=== PATIENT | male | born 1980 | race African-American/Black ===

== ENCOUNTER 2017-11-25 14:13 | Emergency (ER) | payer MEDICAID ==
[~2017-11-25] VITALS: Ht 180.3 cm; Wt 90.7 kg
[~2017-11-25 14:13] MED LIST: CIPRO500 MG PO; COLACE100 MG ORAL; DICYCLOMINE HCL; FLAGYL500 MG ORAL; IBUPROFEN600 MG ORAL; LEVAQUIN500 MG ORAL; METRONIDAZOLE500 MG ORAL; NORCO 5-325 TA1 EACH ORAL; PEPCID20 MG ORAL; TRAMADOL HCL50 MG ORAL; ZOFRAN ODT4 MG ORAL; ZOFRAN8 MG ORAL
[2017-11-25] MEDS ORDERED: NKM (14:37)
[2017-11-25 14:54] VITALS: BP 128/70
[2017-11-25] MEDS ORDERED: Ketorolac 30mg Inj IV ONE (15:00)
[2017-11-25] MEDS ORDERED: Dicyclomine HCl 10mg/5ml oral soln ORAL ONE (15:00)
[2017-11-25] MEDS ORDERED: Mylanta II UD 30ml ORAL ONE (15:00)
[2017-11-25] MEDS ORDERED: Lidocaine 2% Visc 15ml soln ORAL ONE (15:00)
--- NOTE | 2017-11-25 15:00 | Emergency Room Report ---
History of Present Illness General Chief Complaint: Abdominal Pain Present Illness HPI 37-year-old male patient presents ER complaining of left lower quadrant abdominal pain for the past 4 days. Reports history of diverticulitis and states that the pain feels similar. Reports that the pain is moving from his left flank down to his left lower quadrant. contrary to triage report, patient denies dysuria, hematuria. Reports vomiting and diarrhea during this time. Reports been able to pass gas. States that he has been eating healthy with regards to his diverticulitis from a diet however he recently drink alcohol Friday which is when he began to experience symptoms. Denies traveling outside the country. Denies recent antibiotic use. Denies blood in vomit or stool. Denies other acute symptoms. Allergies: Coded Allergies: No Known Allergies (Unverified , 05/18/13) Patient History Past Medical History: see triage record Reviewed Nursing Documentation: PMH: Agreed; PSxH: Agreed Nursing Documentation-PMH Hx Hypertension: Yes Hx Asthma: Yes Hx Gastrointestinal Problems: Yes - diverticulitis Review of Systems All Other Systems: negative except mentioned in HPI Physical Exam Vital Signs Date Time Temp Pulse Resp B/P (MAP) Pulse Ox O2 Delivery O2 Flow Rate FiO2 11/25/17 14:32 98.3 76 18 128/70 96 Room Air 98.2 Sp02 EP Interpretation: reviewed, normal General Appearance: well appearing, no apparent distress, alert, GCS 15, non- toxic Head: normocephalic, atraumatic Eyes: bilateral eye normal inspection, bilateral eye PERRL ENT: hearing grossly normal, normal pharynx, no angioedema, normal voice, uvula midline, moist mucus membranes Neck: full range of motion Respiratory: lungs clear, normal breath sounds, no rhonchi, no respiratory distress, no accessory muscle use, no wheezing, speaking full sentences Cardiovascular #1: regular rate, rhythm, no edema Gastrointestinal: non tender, soft, no mass, non-distended, no guarding, no rebound, other - Negative Rovsing, negative Rodriguez, negative obturator, negative heel strike Genitourinary: no CVA tenderness Musculoskeletal: back normal, digits/nails normal, gait/station normal, normal range of motion, non-tender Neurologic: alert, oriented x3, responsive, motor strength/tone normal, sensory intact Psychiatric: mood/affect normal Skin: no rash Medical Decision Making PA Attestation Dr. Bass is my supervising Physician whom patient management has been discussed with. Diagnostic Impression: Primary Impression: Diverticulitis ER Course Pt. presents to the ED c/o abdominal pain, diarrhea, and vomiting. Ddx considered but are not limited to UTI, cholelithiasis, cholecystitis, pancreatitis, appendicitis, diverticulitis, gastritis, enteritis, viral syndrome. Negative Rovsing, no tenderness to palpation of McBurney's point, negative obturator, low suspicion for appendicitis. patient reports left lower quadrant tenderness, no tenderness to palpation on distraction, history of diverticulitis, will order CT to rule out underlying pathology. Begin abdominal pain workup. Provided patient with pain medication. Vital signs: are WNL, pt. is afebrile ORDERS: CBC, CMP, Lipase, UA, CT abdomen pelvis, Zofran, GI cocktail and pain medication. ER COURSE: CBC and CMP unremarkable, no elevation WBCs or LFTs Lipase within normal limits UA unremarkable, negative nitrates, patient asymptomatic, does not require antibiotic treatment at this time for possible UTI infection. Follow-up with primary care provider to discuss further treatment and referral. CT abdomen and pelvis diverticulitis. We'll provide patient with antibiotic treatment and Tylenol for pain symptoms. Follow up GI specialist. Also noted prominent prostate, follow-up with primary care provider to discuss referral as needed states specialist. Discuss results with the patient. Provided patient with copy of results. Instructed patient to followup with PCP and discuss results of report with patient, discuss need for further treatment and referral. Patient reports relief of pain symptoms with medication during stay in ER. Able to tolerate PO fluids. Resting comfortably in no acute distress, nontoxic appearing, afebrile. Okay for discharge to home. DISCHARGE: Rx provided for Cipro Rx provided for for metronidazole Rx provided for Tylenol At this time pt. is stable for d/c to home. Patient resting comfortably, in no acute distress, nontoxic appearing, talking without difficulty. Rx provided to patient. Patient to take medications as instructed Will provide with patient care instructions and any necessary prescriptions. Care plan and follow-up instructions provided. Patient instructed to follow-up with primary care provider in 3 - 5 days. Patient questions asked and answered. Patient reports understanding and agreement to treatment plan. ER precautions given. Patient instructed to return to ER immediately for any new or worsening of symptoms including but not limited to increasing SOB, persistent fever, worsening of pain symptoms, intractable vomiting, blood in stool, urine, and/or emesis. - Please note that this Emergency Department Report was dictated using [email or web address] production manager technology software, occasionally this can lead to erroneous entry secondary to interpretation by the dictation equipment. Labs Test 11/25/17 14:52 11/25/17 15:10 Urine Color Yellow Urine Appearance Clear Urine pH 8 (4.5-8.0) Urine Specific [place] 1.015 (1.005-1.035) Urine Protein Negative (NEGATIVE) Urine Glucose (UA) Negative (NEGATIVE) Urine Ketones 1+ (NEGATIVE) Urine Occult Blood Negative (NEGATIVE) Urine Nitrite Negative (NEGATIVE) Urine Bilirubin Negative (NEGATIVE) Urine Urobilinogen 4 MG/DL (0.0-1.0) Urine Leukocyte Esterase 1+ (NEGATIVE) Urine RBC 0-2 /HPF (0 - 0) Urine WBC 2-4 /HPF (0 - 0) Urine Squamous Epithelial Cells None /LPF (NONE/OCC) Urine Amorphous Sediment Few /LPF (NONE) Urine Bacteria Few /HPF (NONE) White Blood Count 4.2 K/UL (4.8-10.8) Red Blood Count 4.92 M/UL (4.70-6.10) Hemoglobin 14.4 G/DL (14.2-18.0) Hematocrit 42.9 % (42.0-52.0) Mean Corpuscular Volume 87 FL (80-99) Mean Corpuscular Hemoglobin 29.2 PG (27.0-31.0) Mean Corpuscular Hemoglobin Concent 33.5 G/DL (32.0-36.0) Red Cell Distribution Width 11.5 % (11.6-14.8) Platelet Count 193 K/UL (150-450) Mean Platelet Volume 7.7 FL (6.5-10.1) Neutrophils (%) (Auto) 55.8 % (45.0-75.0) Lymphocytes (%) (Auto) 35.7 % (20.0-45.0) Monocytes (%) (Auto) 6.5 % (1.0-10.0) Eosinophils (%) (Auto) 0.4 % (0.0-3.0) Basophils (%) (Auto) 1.6 % (0.0-2.0) Sodium Level 140 MMOL/L (136-145) Potassium Level 3.7 MMOL/L (3.5-5.1) Chloride Level 104 MMOL/L (98-107) Carbon Dioxide Level 25 MMOL/L (21-32) Anion Gap 11 mmol/L (5-15) Blood Urea Nitrogen 8 mg/dL (7-18) Creatinine 0.8 MG/DL (0.55-1.30) Estimat Glomerular Filtration Rate > 60 mL/min (>60) Glucose Level 88 MG/DL (74-106) Calcium Level 9.2 MG/DL (8.5-10.1) Total Bilirubin 0.4 MG/DL (0.2-1.0) Aspartate Amino Transf (AST/SGOT) 13 U/L (15-37) Alanine Aminotransferase (ALT/SGPT) 24 U/L (12-78) Alkaline Phosphatase 63 U/L (46-116) Total Protein 7.5 G/DL (6.4-8.2) Albumin 3.6 G/DL (3.4-5.0) Globulin 3.9 g/dL Albumin/Globulin Ratio 0.9 (1.0-2.7) Lipase 97 U/L (73-393) CT/MRI/US Diagnostic Results CT/MRI/US Diagnostic Results : Imaging Test Ordered: CT abdomen pelvis Impression Findings consistent with recurrent uncomplicated acute diverticulitis of the descending/sigmoid colon junction. Note that this is in a similar location to findings reported on 07/15/2013, although current findings are considerably more extensive Last Vital Signs Date Time Temp Pulse Resp B/P (MAP) Pulse Ox O2 Delivery O2 Flow Rate FiO2 11/25/17 14:54 98.2 79 18 128/70 96 Room Air 98.2 Status: improved Disposition: HOME, SELF-CARE Condition: Stable Scripts Acetaminophen* (TYLENOL EXTRA STRENGTH*) 500 Mg Tablet 500 MG ORAL Q8H PRN for Prn Headache/Temp > 101, #30 TAB 0 Refills Prov: Christiano Ramirez P.A. 11/25/17 Ciprofloxacin Hcl* (CIPROFLOXACIN HCL*) 500 Mg Tablet 500 MG ORAL EVERY 12 HOURS, #14 TAB 0 Refills Prov: Christiano Ramirez P.A. 11/25/17 Metronidazole* (FLAGYL*) 500 Mg Tablet 500 MG ORAL EVERY 8 HOURS, #7 TAB Prov: Christiano Ramirez 11/25/17 Patient Instructions: Diverticulitis, [id number], Diverticulosis Additional Instructions: Followup with primary care provider in 3 -5 days. Request referral to GI specialist. Take medications as directed. Patient questions asked and answered. ER precautions given, patient instructed to return to ER immediately for any new or worsening of symptoms including but not limited to intractable vomiting, worsening of pain symptoms, chest pain, shortness of breath, blood in stool or emesis. Christiano Ramirez Nov 25, 2017 15:00
[2017-11-25 15:03] LABS: APPEARANCE,URINE CLEAR; BILIRUBIN, URINE NEGATIVE (NEGATIVE); GLUCOSE, URINE (UA) NEGATIVE (NEGATIVE); KETONES,URINE 1+ (NEGATIVE); LEUKOCYTE ESTERASE ,URINE 1+ (NEGATIVE); NITRITE,URINE NEGATIVE (NEGATIVE); PH,URINE 8 (4.5-8.0); PROTEIN,URINE NEGATIVE (NEGATIVE); UROBILINOGEN,URINE 4 MG/DL (0.0-1.0)
[2017-11-25 15:15] LABS: COLOR,URINE YELLOW
[2017-11-25 15:41] LABS: BASOPHILS % (AUTO) 1.6 % (0.0-2.0); EOSINOPHILS % (AUTO) 0.4 % (0.0-3.0); HEMATOCRIT 42.9 % (42.0-52.0); HEMOGLOBIN 14.4 G/DL (14.2-18.0); LYMPHOCYTES % (AUTO) 35.7 % (20.0-45.0); MEAN CORPUSCULAR VOLUME 87 FL (80-99); MONOCYTES % (AUTO) 6.5 % (1.0-10.0); NEUTROPHILS % (AUTO) 55.8 % (45.0-75.0); PLATELET COUNT 193 K/UL (150-450); RED BLOOD COUNT 4.92 M/UL (4.70-6.10); RED CELL DISTRIBUTION WIDTH 11.5 % (11.6-14.8); WHITE BLOOD COUNT 4.2 K/UL (4.8-10.8)
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
[2017-11-25 15:57] LABS: ANION GAP 11 mmol/L (5-15); BLOOD UREA NITROGEN 8 mg/dL (7-18); CALCIUM 9.2 MG/DL (8.5-10.1); CARBON DIOXIDE 25 MMOL/L (21-32); CHLORIDE 104 MMOL/L (98-107); CREATININE 0.8 MG/DL (0.55-1.30); POTASSIUM 3.7 MMOL/L (3.5-5.1); SODIUM 140 MMOL/L (136-145)
[2017-11-25 16:01] LABS: ALANINE AMINOTRANSFERASE 24 U/L (12-78); ALBUMIN 3.6 G/DL (3.4-5.0); ALBUMIN/GLOBULIN RATIO 0.9 (1.0-2.7); ALKALINE PHOSPHATASE 63 U/L (46-116); ASPARTATE AMINO TRANSFERASE 13 U/L (15-37); BILIRUBIN,TOTAL 0.4 MG/DL (0.2-1.0)
[2017-11-25] MEDS ORDERED: TYLENOL EXTRA500 MG ORAL (17:00)
[2017-11-25] MEDS ORDERED: FLAGYL500 MG ORAL (17:00)
[2017-11-25] MEDS ORDERED: CIPROFLOXACIN500 M2 ORAL (17:00)
[2017-11-25 17:14] VITALS: BP 131/64
== END 2017-11-25 17:15 | disposition home or self-care (01) ==
LOC: EMR 14:54
DX: K57.32 Diverticulitis of large intestine without perforation or abscess without bleeding (principal); I10 Essential (primary) hypertension
CPT/HCPCS: 36415; 74176; 80053; 81003; 83690; 85025; 96361; 96374; 96375; 99284; J1885; J2405

== ENCOUNTER 2017-12-19 06:36 | Emergency (ER) | payer MEDICAID ==
[~2017-12-19] VITALS: Ht 180.3 cm; Wt 90.7 kg
[~2017-12-19 06:36] MED LIST changes: +CIPROFLOXACIN500 M2 ORAL; +NKM; +TYLENOL EXTRA500 MG ORAL
--- NOTE | 2017-12-19 07:06 | Emergency Room Report ---
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 and has had colonoscopy showing diverticulosis Patient reports following up with his primary physician and was given referral to another GI specialist more recently Allergies: Coded Allergies: No Known Allergies (Unverified , 05/18/13) Patient History Past Medical History: see triage record Pertinent Family History: none Reviewed Nursing Documentation: PMH: Agreed; PSxH: Agreed Nursing Documentation-PMH Past Medical History: No History, Except For Hx Hypertension: Yes Hx Asthma: Yes Hx Gastrointestinal Problems: Yes - Diverticulitis Review of Systems All Other Systems: negative except mentioned in HPI Physical Exam Vital Signs Date Time Temp Pulse Resp B/P (MAP) Pulse Ox O2 Delivery O2 Flow Rate FiO2 12/19/17 06:54 98.2 80 12 138/81 99 Room Air 98.2 Sp02 EP Interpretation: reviewed, normal General Appearance: well appearing, no apparent distress Head: normocephalic, atraumatic Eyes: bilateral eye PERRL, bilateral eye EOMI ENT: hearing grossly normal, normal pharynx, TMs + canals normal, uvula midline Neck: full range of motion, supple, no meningismus, no bony tend Respiratory: lungs clear, normal breath sounds, no rhonchi, no respiratory distress, no retraction, no accessory muscle use Cardiovascular #1: normal peripheral pulses, regular rate, rhythm, no edema, no gallop, no JVD, no murmur Gastrointestinal: normal bowel sounds, non tender, soft, no mass, no organomegaly, non-distended, no guarding, no hernia, no pulsatile mass, no rebound Genitourinary: no CVA tenderness Musculoskeletal: normal inspection Neurologic: oriented x3, responsive, streetcar operator III-XII nml as tested, motor strength/ tone normal, sensory intact Psychiatric: mood/affect normal Skin: normal color, no rash, warm/dry, palpation normal Lymphatic: normal inspection, no adenopathy Medical Decision Making Diagnostic Impression: Primary Impression: abdominal pain Additional Impression: Diverticulitis ER Course With the history exam and presentation, multiple differentials considered, including but not limited to appendicitis, gastritis, cholecystitis, diverticulitis Patient's clinical palpation is fairly benign Hemodynamically appropriate Afebrile Patient appears to have fairly chronic diverticulitis Given the acute discomfort however extensive blood work is initiated with IV medication intervention On reevaluation patient feel significantly improved Patient has had multiple CAT scan imaging's and in the best interest of the patient, given the lack of any acute abdominal-type findings on the exam this was not repeated Patient will have continued outpatient care and attempt Will follow closely with primary physician and return with any worsening symptoms Labs Test 12/19/17 07:00 White Blood Count 7.5 K/UL (4.8-10.8) Red Blood Count 4.86 M/UL (4.70-6.10) Hemoglobin 14.3 G/DL (14.2-18.0) Hematocrit 42.2 % (42.0-52.0) Mean Corpuscular Volume 87 FL (80-99) Mean Corpuscular Hemoglobin 29.4 PG (27.0-31.0) Mean Corpuscular Hemoglobin Concent 33.8 G/DL (32.0-36.0) Red Cell Distribution Width 11.3 % (11.6-14.8) Platelet Count 185 K/UL (150-450) Mean Platelet Volume 7.5 FL (6.5-10.1) Neutrophils (%) (Auto) 72.0 % (45.0-75.0) Lymphocytes (%) (Auto) 16.2 % (20.0-45.0) Monocytes (%) (Auto) 10.4 % (1.0-10.0) Eosinophils (%) (Auto) 0.5 % (0.0-3.0) Basophils (%) (Auto) 0.9 % (0.0-2.0) Sodium Level 138 MMOL/L (136-145) Potassium Level 3.8 MMOL/L (3.5-5.1) Chloride Level 104 MMOL/L (98-107) Carbon Dioxide Level 28 MMOL/L (21-32) Anion Gap 6 mmol/L (5-15) Blood Urea Nitrogen 9 mg/dL (7-18) Creatinine 0.9 MG/DL (0.55-1.30) Estimat Glomerular Filtration Rate > 60 mL/min (>60) Glucose Level 99 MG/DL (74-106) Calcium Level 8.7 MG/DL (8.5-10.1) Total Bilirubin 0.6 MG/DL (0.2-1.0) Aspartate Amino Transf (AST/SGOT) 13 U/L (15-37) Alanine Aminotransferase (ALT/SGPT) 26 U/L (12-78) Alkaline Phosphatase 62 U/L (46-116) Total Protein 7.6 G/DL (6.4-8.2) Albumin 3.6 G/DL (3.4-5.0) Globulin 4.0 g/dL Albumin/Globulin Ratio 0.9 (1.0-2.7) Lipase 78 U/L (73-393) Last Vital Signs Date Time Temp Pulse Resp B/P (MAP) Pulse Ox O2 Delivery O2 Flow Rate FiO2 12/19/17 06:54 98.2 80 12 138/81 99 Room Air 98.2 Status: improved Disposition: HOME, SELF-CARE Condition: Improved Scripts Acetaminophen With Codeine (T#3) (TYLENOL #3 TAB*) Y Tab 1 TAB ORAL Q8H PRN for For Pain, #10 TAB Prov: Laura Wells DO 12/19/17 Ondansetron (Zofran) 4 Mg Tablet 4 MG ORAL Q8HR PRN for Nausea & Vomiting, #10 TAB Prov: Laura Wells DO 12/19/17 Levofloxacin* (LEVAQUIN*) 500 Mg Tablet 500 MG ORAL DAILY for 7 Days, TAB Prov: Laura Wells DO 12/19/17 Additional Instructions: Patient is provided with the discharge instructions notified to follow up with primary doctor in the next 2-3 days otherwise return to the er with any worsening symptoms. Please note that this report is being documented using [employer] technology. This can lead to erroneous entry secondary to incorrect interpretation by the dictating instrument. Laura Wells DO Dec 19, 2017 07:06
[2017-12-19] MEDS ORDERED: DiphenhydrAMINE 50mg/ml Inj IVP ONE (07:15)
[2017-12-19] MEDS ORDERED: Metoclopramide 10mg/2ml Inj IVP ONE (07:15)
[2017-12-19] MEDS ORDERED: Ketorolac 30mg Inj IV ONE (07:15)
[2017-12-19 07:16] VITALS: BP 134/83
[2017-12-19 07:16] LABS: BASOPHILS % (AUTO) 0.9 % (0.0-2.0); EOSINOPHILS % (AUTO) 0.5 % (0.0-3.0); HEMATOCRIT 42.2 % (42.0-52.0); HEMOGLOBIN 14.3 G/DL (14.2-18.0); LYMPHOCYTES % (AUTO) 16.2 % (20.0-45.0); MEAN CORPUSCULAR VOLUME 87 FL (80-99); MONOCYTES % (AUTO) 10.4 % (1.0-10.0); PLATELET COUNT 185 K/UL (150-450); RED BLOOD COUNT 4.86 M/UL (4.70-6.10); RED CELL DISTRIBUTION WIDTH 11.3 % (11.6-14.8); WHITE BLOOD COUNT 7.5 K/UL (4.8-10.8)
[2017-12-19 07:31] LABS: ANION GAP 6 mmol/L (5-15); BLOOD UREA NITROGEN 9 mg/dL (7-18); CALCIUM 8.7 MG/DL (8.5-10.1); CARBON DIOXIDE 28 MMOL/L (21-32); CHLORIDE 104 MMOL/L (98-107); CREATININE 0.9 MG/DL (0.55-1.30); POTASSIUM 3.8 MMOL/L (3.5-5.1); SODIUM 138 MMOL/L (136-145)
[2017-12-19 07:35] LABS: ALANINE AMINOTRANSFERASE 26 U/L (12-78); ALBUMIN 3.6 G/DL (3.4-5.0); ALBUMIN/GLOBULIN RATIO 0.9 (1.0-2.7); ALKALINE PHOSPHATASE 62 U/L (46-116); ASPARTATE AMINO TRANSFERASE 13 U/L (15-37); BILIRUBIN,TOTAL 0.6 MG/DL (0.2-1.0)
[2017-12-19] MEDS ORDERED: ZOFRAN4 M1 ORAL (08:08)
[2017-12-19] MEDS ORDERED: LEVAQUIN500 MG ORAL (08:08)
[2017-12-19] MEDS ORDERED: ACETAMINOPHEN-1 EAC1 ORAL (08:08)
[2017-12-19 08:22] VITALS: BP 120/69
== END 2017-12-19 08:22 | disposition home or self-care (01) ==
LOC: EMR 07:19
DX: K57.92 Diverticulitis of intestine, part unspecified, without perforation or abscess without bleeding (principal); I10 Essential (primary) hypertension; J45.909 Unspecified asthma, uncomplicated
CPT/HCPCS: 36415; 80053; 83690; 85025; 96361; 96374; 96375; 99284; J1200; J1885; J2765

== ENCOUNTER 2018-11-01 10:47 | Emergency (ER) | payer MEDICAID ==
[~2018-11-01] VITALS: Ht 180.3 cm; Wt 86.2 kg
[~2018-11-01 10:47] MED LIST changes: +ACETAMINOPHEN-1 EAC1 ORAL; +ZOFRAN4 M1 ORAL
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
[2018-11-01 11:09] VITALS: BP 132/84
[2018-11-01 11:23] LABS: BASOPHILS % (AUTO) 1.5 % (0.0-2.0); EOSINOPHILS % (AUTO) 0.9 % (0.0-3.0); HEMATOCRIT 42.5 % (42.0-52.0); HEMOGLOBIN 14.2 G/DL (14.2-18.0); LYMPHOCYTES % (AUTO) 27.6 % (20.0-45.0); MEAN CORPUSCULAR VOLUME 90 FL (80-99); MONOCYTES % (AUTO) 8.7 % (1.0-10.0); NEUTROPHILS % (AUTO) 61.3 % (45.0-75.0); PLATELET COUNT 165 K/UL (150-450); RED BLOOD COUNT 4.74 M/UL (4.70-6.10); RED CELL DISTRIBUTION WIDTH 11.8 % (11.6-14.8); WHITE BLOOD COUNT 4.1 K/UL (4.8-10.8)
[2018-11-01 11:26] LABS: ANION GAP 10 mmol/L (5-15); BLOOD UREA NITROGEN 9 mg/dL (7-18); CALCIUM 9.2 MG/DL (8.5-10.1); CARBON DIOXIDE 26 MMOL/L (21-32); CHLORIDE 107 MMOL/L (98-107); CREATININE 0.9 MG/DL (0.55-1.30); POTASSIUM 3.9 MMOL/L (3.5-5.1); SODIUM 143 MMOL/L (136-145)
[2018-11-01 11:31] LABS: ALANINE AMINOTRANSFERASE 23 U/L (12-78); ALBUMIN 3.6 G/DL (3.4-5.0); ALKALINE PHOSPHATASE 59 U/L (46-116); ASPARTATE AMINO TRANSFERASE 14 U/L (15-37); BILIRUBIN,TOTAL 0.5 MG/DL (0.2-1.0)
[2018-11-01] MEDS ORDERED: Morphine Sulfate 4mg/ml Inj (IV USE ONLY) IVP ONE (13:15)
[2018-11-01] MEDS ORDERED: Ketorolac 30mg Inj IV ONE (13:15)
[2018-11-01] MEDS ORDERED: ACETAMINOPHEN-1 EAC1 ORAL (13:30)
[2018-11-01] MEDS ORDERED: LEVAQUIN500 MG ORAL (13:30)
[2018-11-01] MEDS ORDERED: COLACE100 MG ORAL (13:30)
[2018-11-01] MEDS ORDERED: METRONIDAZOLE500 MG ORAL (13:30)
[2018-11-01] MEDS ORDERED: Bacitracin Oint UD TOPIC ONE (13:45)
[2018-11-01 13:46] VITALS: BP 126/82
== END 2018-11-01 13:45 | disposition home or self-care (01) ==
LOC: EMR 11:10
DX: K57.92 Diverticulitis of intestine, part unspecified, without perforation or abscess without bleeding (principal); R10.32 Left lower quadrant pain; J45.909 Unspecified asthma, uncomplicated; I10 Essential (primary) hypertension
CPT/HCPCS: 36415; 80053; 85025; 96365; 96368; 96375; 99284; J1885; J1956; J2270; J2405; J7040

== ENCOUNTER 2018-11-03 18:58 | Emergency (ER) | payer SELFPAY ==
[~2018-11-03] VITALS: Ht 177.8 cm; Wt 86.2 kg
[2018-11-03 19:25] VITALS: BP 131/81
[2018-11-03] MEDS ORDERED: cefTRIAXone 1 GM in NS 55 ML IVPB ONE (19:30)
[2018-11-03] MEDS ORDERED: Morphine Sulfate 4mg/ml Inj (IV USE ONLY) IVP ONE (19:30)
[2018-11-03 19:41] LABS: BASOPHILS % (AUTO) 1.8 % (0.0-2.0); EOSINOPHILS % (AUTO) 1.3 % (0.0-3.0); HEMOGLOBIN 13.4 G/DL (14.2-18.0); LYMPHOCYTES % (AUTO) 31.8 % (20.0-45.0); MEAN CORPUSCULAR VOLUME 88 FL (80-99); MONOCYTES % (AUTO) 12.1 % (1.0-10.0); PLATELET COUNT 157 K/UL (150-450); RED BLOOD COUNT 4.43 M/UL (4.70-6.10); RED CELL DISTRIBUTION WIDTH 11.2 % (11.6-14.8)
[2018-11-03 19:56] LABS: ALANINE AMINOTRANSFERASE 23 U/L (12-78); ALBUMIN/GLOBULIN RATIO 1.4 (1.0-2.7); ALKALINE PHOSPHATASE 58 U/L (46-116); ANION GAP 10 mmol/L (5-15); ASPARTATE AMINO TRANSFERASE 18 U/L (15-37); BILIRUBIN,TOTAL 0.5 MG/DL (0.2-1.0); BLOOD UREA NITROGEN 9 mg/dL (7-18); CALCIUM 9.1 MG/DL (8.5-10.1); CARBON DIOXIDE 27 MMOL/L (21-32); CHLORIDE 104 MMOL/L (98-107); CREATININE 0.9 MG/DL (0.55-1.30); POTASSIUM 3.4 MMOL/L (3.5-5.1); SODIUM 141 MMOL/L (136-145)
[2018-11-03 20:29] LABS: APPEARANCE,URINE CLEAR; BILIRUBIN, URINE NEGATIVE (NEGATIVE); GLUCOSE, URINE (UA) NEGATIVE (NEGATIVE); KETONES,URINE 3+ (NEGATIVE); LEUKOCYTE ESTERASE ,URINE 1+ (NEGATIVE); NITRITE,URINE NEGATIVE (NEGATIVE); PH,URINE 5 (4.5-8.0); PROTEIN,URINE NEGATIVE (NEGATIVE); UROBILINOGEN,URINE 1 MG/DL (0.0-1.0)
[2018-11-03 20:30] LABS: COLOR,URINE YELLOW
[2018-11-03 21:30] VITALS: BP 128/85
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
[2018-11-03] MEDS ORDERED: CIPROFLOXACIN500 M2 ORAL (22:20)
[2018-11-03] MEDS ORDERED: CEPHALEXIN500 MG ORAL (22:20)
[2018-11-03] MEDS ORDERED: ACETAMINOPHEN-1 EAC1 ORAL (22:22)
[2018-11-03] MEDS ORDERED: ONDANSETRON ODT4 MG BC (22:30)
[2018-11-03 22:55] VITALS: BP 129/78
== END 2018-11-03 22:55 | disposition home or self-care (01) ==
LOC: EMR 19:25
DX: K57.92 Diverticulitis of intestine, part unspecified, without perforation or abscess without bleeding (principal); I10 Essential (primary) hypertension
CPT/HCPCS: 36415; 80053; 81003; 83690; 85025; 96365; 96368; 96375; 96376; 99284; J0696; J1956; J2270; J2405

== ENCOUNTER 2018-11-16 13:06 | Emergency (ER) | payer MEDICAID ==
[~2018-11-16] VITALS: Ht 177.8 cm; Wt 81.6 kg
[~2018-11-16 13:06] MED LIST changes: +CEPHALEXIN500 MG ORAL; +ONDANSETRON ODT4 MG BC
[2018-11-16 13:20] VITALS: BP 130/76
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
[2018-11-16] MEDS ORDERED: Morphine Sulfate 4mg/ml Inj (IV USE ONLY) IVP ONE ×3 (13:45→17:15)
[2018-11-16 13:49] LABS: BASOPHILS % (AUTO) 1.3 % (0.0-2.0); EOSINOPHILS % (AUTO) 0.4 % (0.0-3.0); HEMATOCRIT 45.5 % (42.0-52.0); HEMOGLOBIN 15.4 G/DL (14.2-18.0); LYMPHOCYTES % (AUTO) 32.3 % (20.0-45.0); MEAN CORPUSCULAR VOLUME 89 FL (80-99); MONOCYTES % (AUTO) 7.7 % (1.0-10.0); NEUTROPHILS % (AUTO) 58.2 % (45.0-75.0); PLATELET COUNT 226 K/UL (150-450); RED BLOOD COUNT 5.11 M/UL (4.70-6.10); RED CELL DISTRIBUTION WIDTH 11.7 % (11.6-14.8); WHITE BLOOD COUNT 4.9 K/UL (4.8-10.8)
[2018-11-16 13:57] LABS: APPEARANCE,URINE SLIGHTLY CLOUDY; BILIRUBIN, URINE 1+ (NEGATIVE); COLOR,URINE AMBER; GLUCOSE, URINE (UA) NEGATIVE (NEGATIVE); KETONES,URINE 3+ (NEGATIVE); LEUKOCYTE ESTERASE ,URINE 2+ (NEGATIVE); NITRITE,URINE NEGATIVE (NEGATIVE); PH,URINE 6 (4.5-8.0); PROTEIN,URINE 1+ (NEGATIVE); UROBILINOGEN,URINE 4 MG/DL (0.0-1.0)
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
[2018-11-16] MEDS ORDERED: Isovue-300 100ml vial INJ PRN (14:00)
[2018-11-16 14:12] LABS: ANION GAP 8 mmol/L (5-15); BLOOD UREA NITROGEN 10 mg/dL (7-18); CALCIUM 9.3 MG/DL (8.5-10.1); CARBON DIOXIDE 27 MMOL/L (21-32); CHLORIDE 103 MMOL/L (98-107); CREATININE 0.9 MG/DL (0.55-1.30); POTASSIUM 3.5 MMOL/L (3.5-5.1); SODIUM 138 MMOL/L (136-145)
[2018-11-16 14:17] LABS: ALANINE AMINOTRANSFERASE 15 U/L (12-78); ALBUMIN 4.5 G/DL (3.4-5.0); ALBUMIN/GLOBULIN RATIO 1.5 (1.0-2.7); ALKALINE PHOSPHATASE 62 U/L (46-116); ASPARTATE AMINO TRANSFERASE 15 U/L (15-37); BILIRUBIN,TOTAL 0.6 MG/DL (0.2-1.0)
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
--- NOTE | 2018-11-16 14:55 | NUR ---
ED Nurse Note: pt complaining of 7/10 abdominal pain. ermd made aware and ordered iv morphine and administered to pt. pt able to tolerate. will continue to monitor.
--- NOTE | 2018-11-16 14:55 | NUR ---
ED Nurse Note: ermd on bedside discussing to pt regarding having infection in the urine. iv abx ordered and started. will continue to monitor
[2018-11-16] MEDS ORDERED: cefTRIAXone 1 GM in NS 55 ML IVPB ONE (15:00)
[2018-11-16 15:22] VITALS: BP 151/84
--- NOTE | 2018-11-16 16:25 | NUR ---
ED Nurse Note: PT WENT TO CT WITH TECH
--- NOTE | 2018-11-16 16:55 | NUR ---
ED Nurse Note: pt aware of the posible admission.
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
--- NOTE | 2018-11-16 17:20 | NUR ---
ED Nurse Note: pt complained of 7/10 pain. ermd made aware. pt medicated as ordered. pt able to tolerate. will continue to monitor.
[2018-11-16 17:41] VITALS: BP 136/82
[2018-11-16] MEDS ORDERED: HYDROmorphone 1mg/ml Carpuject IVP ONE (18:30)
[2018-11-16 20:30] VITALS: BP 136/87
--- NOTE | 2018-11-16 20:30 | NUR ---
ED Nurse Note: Patient was transfered to [facility] due to diverticulitis, severe constipation. Patient was transfered to [facility] via [facility] ambulance #[id number], with all belongings. AAO x4, VSS at this time, skin is warm to touch.
== END 2018-11-16 20:30 | disposition other institution (70) ==
LOC: EMR 13:35 → EDBEDREQ 17:07 → EMR 20:30
DX: K57.92 Diverticulitis of intestine, part unspecified, without perforation or abscess without bleeding (principal); K56.609 Unspecified intestinal obstruction, unspecified as to partial versus complete obstruction; R10.9 Unspecified abdominal pain; J45.909 Unspecified asthma, uncomplicated; F17.200 Nicotine dependence, unspecified, uncomplicated
CPT/HCPCS: 36415; 74018; 74177; 80053; 81003; 83690; 85025; 96361; 96365; 96367; 96375; 96376; 99285; J0696; J1170; J2270; J2405; Q9967

== ENCOUNTER 2018-12-03 13:35 | Emergency (ER) | payer SELFPAY ==
[~2018-12-03] VITALS: Ht 180.3 cm; Wt 76.2 kg
--- NOTE | 2018-12-03 14:05 | NUR ---
ED Nurse Note: Pt came in from home due to medial abdominal pain and oozing from surgical site (yellowish color), pt had bowel obstruction repair procedure done on 11/27/18 at [facility]. Primary Dr was seen on 12/01/18. Pain 11/11 marialuisa. AOx4, VSS marialuisa. Will cont to monitor.
--- NOTE | 2018-12-03 14:26 | Emergency Room Report ---
History of Present Illness General Chief Complaint: General Complaint Source: Patient Present Illness HPI This patient states that he is one-week status post colectomy with colostomy placement. He states that he went to emergency colectomy at [facility] after suffering a bowel obstruction. The patient has a history of diverticulitis and multiple colon polyps. He also was found to have a large mass in his colon. Per him, this was not found to be cancerous. He states that over the past couple days he has noted redness, warmth, tenderness and then has developed a discharge from the abdominal incision site he denies fever or chills. He denies nausea or vomiting. He denies chest pain or shortness of breath. He is on oral antibiotics and has been compliant. He states that he did try to contact the surgeon and that performed the surgery but was unable to contact the surgeon. He states that he also is unhappy with the care he received at [facility]. Allergies: Coded Allergies: No Known Allergies (Unverified , 05/18/13) Patient History Past Medical History: see triage record, asthma, other - hx of diverticulitis Past Surgical History: other - s/p 1 week colectomy w/ colostomy placement. Social History: Denies: smoking, alcohol use, drug use Reviewed Nursing Documentation: PMH: Agreed; PSxH: Agreed Nursing Documentation-PMH Past Medical History: No History, Except For Hx Hypertension: No Hx Asthma: Yes - child Hx Gastrointestinal Problems: Yes - Diverticulitis bowel surgery 2019 colostomy Review of Systems All Other Systems: negative except mentioned in HPI Physical Exam Vital Signs Date Time Temp Pulse Resp B/P (MAP) Pulse Ox O2 Delivery O2 Flow Rate FiO2 12/03/18 13:44 98.4 85 17 124/77 (93) 98 Room Air Sp02 EP Interpretation: reviewed, normal General Appearance: no apparent distress, alert, GCS 15, non-toxic Head: normocephalic, atraumatic Eyes: bilateral eye normal inspection, bilateral eye PERRL ENT: hearing grossly normal, normal pharynx, no angioedema, normal voice Neck: full range of motion, supple/symm/no masses Respiratory: chest non-tender, lungs clear, normal breath sounds, no respiratory distress, no retraction, no accessory muscle use, speaking full sentences Cardiovascular #1: regular rate, rhythm, no edema Gastrointestinal: soft, non-distended, no guarding, no rebound, tenderness - Mid-line surgical incision with associated erythema at the inferior aspect with purulent discharge from the inferior incision site. [place] in place. Colostomy bag in place with brown stool. Rectal: deferred Musculoskeletal: back normal, gait/station normal, normal range of motion, non- tender Neurologic: alert, oriented x3, responsive, motor strength/tone normal, sensory intact, speech normal Psychiatric: judgement/insight normal, memory normal, mood/affect normal, no suicidal/homicidal ideation Skin: other - See above in GI exam. Medical Decision Making Diagnostic Impression: Primary Impression: Postoperative wound infection ER Course The patient underwent CT of the abdomen and pelvis. There does not appear to be any deep intra-abdominal infection. There is redness and purulent discharge at the surgical incision site. Patient was given IV antibiotics. The patient' s laboratory work-up was unremarkable. The patient is afebrile nontoxic. After the patient admission has I am concerned that possibly this could be a resistant infection, however, the patient preferred to try a trial of oral antibiotics at home. I felt that this was reasonable. The patient was educated that if the erythema and discharge does not improve or worsens that he would need to return immediately. He was also instructed to follow-up closely with his primary surgeon. The patient is given very close return precautions and follow-up instructions. Laboratory Tests Test 12/03/18 14:40 White Blood Count 7.1 K/UL (4.8-10.8) Red Blood Count 3.46 M/UL (4.70-6.10) L Hemoglobin 10.2 G/DL (14.2-18.0) L Hematocrit 30.2 % (42.0-52.0) L Mean Corpuscular Volume 87 FL (80-99) Mean Corpuscular Hemoglobin 29.6 PG (27.0-31.0) Mean Corpuscular Hemoglobin Concent 33.9 G/DL (32.0-36.0) Red Cell Distribution Width 14.1 % (11.6-14.8) Platelet Count 306 K/UL (150-450) Mean Platelet Volume 5.5 FL (6.5-10.1) L Neutrophils (%) (Auto) 67.5 % (45.0-75.0) Lymphocytes (%) (Auto) 24.0 % (20.0-45.0) Monocytes (%) (Auto) 5.1 % (1.0-10.0) Eosinophils (%) (Auto) 1.5 % (0.0-3.0) Basophils (%) (Auto) 1.9 % (0.0-2.0) Sodium Level 138 MMOL/L (136-145) Potassium Level 4.3 MMOL/L (3.5-5.1) Chloride Level 104 MMOL/L (98-107) Carbon Dioxide Level 29 MMOL/L (21-32) Anion Gap 5 mmol/L (5-15) Blood Urea Nitrogen 11 mg/dL (7-18) Creatinine 0.6 MG/DL (0.55-1.30) Estimate Glomerular Filtration Rate > 60 mL/min (>60) Glucose Level 94 MG/DL (74-106) Lactic Acid Level 0.90 mmol/L (0.4-2.0) Calcium Level 8.8 MG/DL (8.5-10.1) Total Bilirubin 0.2 MG/DL (0.2-1.0) Aspartate Amino Transferase (AST) 14 U/L (15-37) L Alanine Aminotransferase (ALT) 12 U/L (12-78) Alkaline Phosphatase 40 U/L (46-116) L Total Creatine Kinase 59 U/L (26-308) Total Protein 6.5 G/DL (6.4-8.2) Albumin 2.7 G/DL (3.4-5.0) L Globulin 3.8 g/dL Albumin/Globulin Ratio 0.7 (1.0-2.7) L CT/MRI/US Diagnostic Results CT/MRI/US Diagnostic Results : Imaging Test Ordered: CT abd/pelvis Impression See official report in electronic medical record. Findings consistent with bowel resection. No other acute findings. Last Vital Signs Date Time Temp Pulse Resp B/P (MAP) Pulse Ox O2 Delivery O2 Flow Rate FiO2 12/03/18 13:44 98.4 85 17 124/77 (93) 98 Room Air Status: improved Disposition: HOME, SELF-CARE Condition: Improved Judy Bass DO Dec 03, 2018 14:26
[2018-12-03] MEDS ORDERED: Cefepime HCl 2 GM in NS 110 ML IV SCH (14:30)
[2018-12-03] MEDS ORDERED: Isovue-300 100ml vial INJ PRN (14:30)
[2018-12-03] MEDS ORDERED: Vancomycin 1 GM in NS 275 ML IV ONE (14:30)
[2018-12-03 15:09] LABS: BASOPHILS % (AUTO) 1.9 % (0.0-2.0); EOSINOPHILS % (AUTO) 1.5 % (0.0-3.0); HEMATOCRIT 30.2 % (42.0-52.0); HEMOGLOBIN 10.2 G/DL (14.2-18.0); MEAN CORPUSCULAR VOLUME 87 FL (80-99); MONOCYTES % (AUTO) 5.1 % (1.0-10.0); NEUTROPHILS % (AUTO) 67.5 % (45.0-75.0); PLATELET COUNT 306 K/UL (150-450); RED BLOOD COUNT 3.46 M/UL (4.70-6.10); RED CELL DISTRIBUTION WIDTH 14.1 % (11.6-14.8); WHITE BLOOD COUNT 7.1 K/UL (4.8-10.8)
[2018-12-03 15:19] LABS: ANION GAP 5 mmol/L (5-15); BLOOD UREA NITROGEN 11 mg/dL (7-18); CALCIUM 8.8 MG/DL (8.5-10.1); CARBON DIOXIDE 29 MMOL/L (21-32); CHLORIDE 104 MMOL/L (98-107); CREATININE 0.6 MG/DL (0.55-1.30); POTASSIUM 4.3 MMOL/L (3.5-5.1); SODIUM 138 MMOL/L (136-145)
[2018-12-03 15:24] LABS: ALANINE AMINOTRANSFERASE 12 U/L (12-78); ALBUMIN 2.7 G/DL (3.4-5.0); ALBUMIN/GLOBULIN RATIO 0.7 (1.0-2.7); ALKALINE PHOSPHATASE 40 U/L (46-116); ASPARTATE AMINO TRANSFERASE 14 U/L (15-37); BILIRUBIN,TOTAL 0.2 MG/DL (0.2-1.0); CREATINE KINASE 59 U/L (26-308)
[2018-12-03] MEDS ORDERED: HYDROcodone/Acetamin 5/325 tab ORAL ONE (16:15)
[2018-12-03 16:27] VITALS: BP 134/74
--- NOTE | 2018-12-03 17:16 | NUR ---
ED Nurse Note: Pt down to CT for imaging.
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
[2018-12-03 18:33] VITALS: BP 128/89
--- NOTE | 2018-12-03 18:56 | NUR ---
HAND-OFF: Report given to Duke Wildre RN.
--- NOTE | 2018-12-03 19:00 | NUR ---
ED Nurse Note: RECEIVED PATIENT FROM ALFREDO TURCIOS. PATIENT RESTING IN BED COMFORTABLY WITH NAD. VSS. AO4. AWARE OF PENDING DISCHARGE.
[2018-12-03] MEDS ORDERED: DOXYCYCLINE MO100 MG ORAL (19:01)
[2018-12-03 19:15] VITALS: BP 128/89
--- NOTE | 2018-12-03 19:15 | NUR ---
ER DISCHARGE NOTE: Patient is cleared to be discharged per ERMD, pt is aox4, on room air, with stable vital signs. pt was given dc and prescription instructions, pt was able to verbalize understanding, pt id band and iv site removed without complications. pt is able to ambulate with steady gait. pt took all belongings.
--- NOTE | 2018-12-05 05:33 | Emergency Room Report ---
Physical Exam Vital Signs Date Time Temp Pulse Resp B/P (MAP) Pulse Ox O2 Delivery O2 Flow Rate FiO2 12/03/18 13:44 98.4 85 17 124/77 (93) 98 Room Air Medical Decision Making Diagnostic Impression: Primary Impression: Postoperative wound infection ER Course Received notification of a positive blood culture from ER visit on 12/03/2018. Culture preliminary results shows gram-positive cocci in clusters. Patient was reached at his home and instructed to return to the emergency department as soon as possible. He acknowledged understanding and stated that he would come in right away. Last Vital Signs Date Time Temp Pulse Resp B/P (MAP) Pulse Ox O2 Delivery O2 Flow Rate FiO2 12/03/18 19:15 98.4 81 17 128/89 100 Room Air Disposition: HOME, SELF-CARE Condition: Improved Scripts Doxycycline Monohydrate* (DOXYCYCLINE MONOHYDRATE*) 100 Mg Capsule 100 MG ORAL Q12H, #14 CAP 0 Refills Prov: Judy Bass DO 12/03/18 Referrals: NOT CHOSEN IPA/,REFERRING (PCP) Luis Chandler MD Dec 05, 2018 05:33
== END 2018-12-03 19:15 | disposition home or self-care (01) ==
LOC: EMR 16:01
DX: T81.41XA Infection following a procedure, superficial incisional surgical site, initial encounter (principal); Y83.8 Other surgical procedures as the cause of abnormal reaction of the patient, or of later complication, without mention of misadventure at the time of the procedure; Y92.89 Other specified places as the place of occurrence of the external cause; Z90.49 Acquired absence of other specified parts of digestive tract; Z86.010 Personal history of colon polyps
CPT/HCPCS: 36415; 74177; 80053; 82550; 83605; 85025; 87040; 96365; 96366; 96367; 96368; 99284; J3370; J7050; Q9967

== ENCOUNTER 2018-12-05 07:28 | Inpatient (IN) | payer SELFPAY ==
[~2018-12-05] VITALS: Ht 172.7 cm; Wt 84.4 kg
[~2018-12-05 07:28] MED LIST changes: +DOXYCYCLINE MO100 MG ORAL
[2018-12-05 08:10] VITALS: BP 130/88
--- NOTE | 2018-12-05 08:13 | NUR ---
ED Nurse Note: Pt walked in after he received a phone call today at 0530 from our ER doctor that he has an infection in his blood and needs to get seen, pt denies pain. no fever. will continue to monitor.
--- NOTE | 2018-12-05 08:20 | NUR ---
ED Nurse Note: seen by sonja, with new order to started ivf and iv abx and carried out. blood drawn and pt was able to give urine sample and was sent to lab.
[2018-12-05] MEDS ORDERED: Cefepime HCl 1 GM in D5W 55 ML IVPB ONE (08:30)
[2018-12-05] MEDS ORDERED: Vancomycin 1.5 GM in NS 275 ML IVPB ONE (08:30)
--- NOTE | 2018-12-05 08:40 | NUR ---
ED Nurse Note: xray on bedside
--- NOTE | 2018-12-05 09:05 | Emergency Room Report ---
History of Present Illness General Chief Complaint: General Complaint Source: Patient Present Illness HPI Patient is a 38-year-old male who presents after blood culture was noted to be positive. Patient had been contacted by hospital after his blood cultures grew back with gram-positive cocci in clusters. Patient had recent surgical procedure on November 23. He had a partial bowel resection and colostomy placement. He had been noted to have some night sweats as well as generalized discomfort to the lower abdomen. He had yon currently in place. Patient had been noted to have some drainage from the lower area of his wound.Patient had surgery at [facility] by Dr. Horta. Allergies: Coded Allergies: No Known Allergies (Unverified , 05/18/13) Patient History Past Medical History: see triage record Reviewed Nursing Documentation: PMH: Agreed; PSxH: Agreed Nursing Documentation-PMH Hx Hypertension: No Hx Asthma: Yes - child Hx Gastrointestinal Problems: Yes - Diverticulitis bowel surgery 2019 colostomy Review of Systems All Other Systems: negative except mentioned in HPI Physical Exam Vital Signs Date Time Temp Pulse Resp B/P (MAP) Pulse Ox O2 Delivery O2 Flow Rate FiO2 12/05/18 07:39 98.1 92 19 130/88 (102) 97 Room Air Sp02 EP Interpretation: reviewed, normal General Appearance: normal inspection, alert, GCS 15 Head: atraumatic ENT: normal ENT inspection, hearing grossly normal, normal voice Neck: normal inspection, full range of motion, supple, no bony tend Respiratory: normal inspection, lungs clear, normal breath sounds, no respiratory distress, no retraction, no wheezing Cardiovascular #1: regular rate, rhythm, no edema Gastrointestinal: normal inspection, soft, no guarding, other - incision with purulent drainage to lower portion Genitourinary: no CVA tenderness Musculoskeletal: normal inspection, back normal, normal range of motion Neurologic: normal inspection, alert, oriented x3, responsive, side framer III-XII nml as tested, speech normal Psychiatric: normal inspection, judgement/insight normal, mood/affect normal Skin: other - incision healing Medical Decision Making Diagnostic Impression: Primary Impression: Surgical wound infection Additional Impression: Positive blood culture ER Course Patient presented for positive blood culture. Differential diagnosis include is not limited to bacteremia, contaminant, among others. Patient was noted to have some area of infection to the lower abdominal incision. Patient was noted to have slightly low white blood count. He was also noted to be somewhat anemic. Patient started on IV fluids as well as IV antibiotics. He does not appear to be toxic. Lactic acid level was noted to be normal. Patient will be hospitalized for further IV antibiotics and evaluation of the surgical wound. I discussed the patient's surgeon who states he had a large bowel obstruction and a stricture. He had a sigmoid resection and colostomy placement. Patient was discussed with Dr. Kevyn Verdin for inpatient management due to panel physician. Dr. Mitchell was contacted for surgical consult. Labs Test 12/05/18 08:20 White Blood Count 4.8 K/UL (4.8-10.8) Red Blood Count 3.34 M/UL (4.70-6.10) Hemoglobin 9.8 G/DL (14.2-18.0) Hematocrit 30.1 % (42.0-52.0) Mean Corpuscular Volume 90 FL (80-99) Mean Corpuscular Hemoglobin 29.4 PG (27.0-31.0) Mean Corpuscular Hemoglobin Concent 32.6 G/DL (32.0-36.0) Red Cell Distribution Width 11.8 % (11.6-14.8) Platelet Count 311 K/UL (150-450) Mean Platelet Volume 5.8 FL (6.5-10.1) Neutrophils (%) (Auto) 61.7 % (45.0-75.0) Lymphocytes (%) (Auto) 22.5 % (20.0-45.0) Monocytes (%) (Auto) 11.4 % (1.0-10.0) Eosinophils (%) (Auto) 2.9 % (0.0-3.0) Basophils (%) (Auto) 1.5 % (0.0-2.0) Urine Color Pale yellow Urine Appearance Clear Urine pH 5 (4.5-8.0) Urine Specific [place] 1.030 (1.005-1.035) Urine Protein Negative (NEGATIVE) Urine Glucose (UA) Negative (NEGATIVE) Urine Ketones Negative (NEGATIVE) Urine Blood 1+ (NEGATIVE) Urine Nitrite Negative (NEGATIVE) Urine Bilirubin Negative (NEGATIVE) Urine Urobilinogen Normal MG/DL (0.0-1.0) Urine Leukocyte Esterase 1+ (NEGATIVE) Sodium Level 138 MMOL/L (136-145) Potassium Level 4.1 MMOL/L (3.5-5.1) Chloride Level 106 MMOL/L (98-107) Carbon Dioxide Level 32 MMOL/L (21-32) Anion Gap 0 mmol/L (5-15) Blood Urea Nitrogen 11 mg/dL (7-18) Creatinine 0.7 MG/DL (0.55-1.30) Estimat Glomerular Filtration Rate > 60 mL/min (>60) Glucose Level 82 MG/DL (74-106) Lactic Acid Level 0.60 mmol/L (0.4-2.0) Calcium Level 8.2 MG/DL (8.5-10.1) Total Bilirubin 0.1 MG/DL (0.2-1.0) Aspartate Amino Transf (AST/SGOT) 15 U/L (15-37) Alanine Aminotransferase (ALT/SGPT) 15 U/L (12-78) Alkaline Phosphatase 37 U/L (46-116) Total Creatine Kinase 78 U/L (26-308) Creatine Kinase MB 0.6 NG/ML (0.0-3.6) Creatine Kinase MB Relative Index 0.7 Troponin I 0.000 ng/mL (0.000-0.056) Total Protein 5.7 G/DL (6.4-8.2) Albumin 2.6 G/DL (3.4-5.0) Globulin 3.1 g/dL Albumin/Globulin Ratio 0.8 (1.0-2.7) Last Vital Signs Date Time Temp Pulse Resp B/P (MAP) Pulse Ox O2 Delivery O2 Flow Rate FiO2 12/05/18 08:10 92 19 Room Air 12/05/18 08:10 98.1 130/88 97 Status: improved Disposition: ADMITTED INPATIENT Condition: Stable Referrals: NON PHYSICIAN (PCP) Flo Jones MD Dec 05, 2018 09:05
[2018-12-05] MEDS ORDERED: Lidocaine HCl 2% Jelly 6ml Tube TOPIC ONE ×2 (09:06→09:15)
--- NOTE | 2018-12-05 09:31 | Diagnostic Imaging Report ---
EXAM: XR Chest, 1 View CLINICAL HISTORY: SOB TECHNIQUE: Frontal view of the chest. COMPARISON: No relevant prior studies available. FINDINGS: Lungs: Unremarkable. No consolidation. Pleural space: Unremarkable. No pneumothorax. Heart: Unremarkable. No cardiomegaly. Mediastinum: Unremarkable. Bones/joints: Unremarkable. IMPRESSION: Normal chest x-ray.
[2018-12-05 09:33] LABS: BASOPHILS % (AUTO) 1.5 % (0.0-2.0); EOSINOPHILS % (AUTO) 2.9 % (0.0-3.0); HEMATOCRIT 30.1 % (42.0-52.0); HEMOGLOBIN 9.8 G/DL (14.2-18.0); LYMPHOCYTES % (AUTO) 22.5 % (20.0-45.0); MEAN CORPUSCULAR VOLUME 90 FL (80-99); MONOCYTES % (AUTO) 11.4 % (1.0-10.0); NEUTROPHILS % (AUTO) 61.7 % (45.0-75.0); PLATELET COUNT 311 K/UL (150-450); RED BLOOD COUNT 3.34 M/UL (4.70-6.10); RED CELL DISTRIBUTION WIDTH 11.8 % (11.6-14.8); WHITE BLOOD COUNT 4.8 K/UL (4.8-10.8)
[2018-12-05 09:36] LABS: APPEARANCE,URINE CLEAR; BILIRUBIN, URINE NEGATIVE (NEGATIVE); COLOR,URINE PALE YELLOW; GLUCOSE, URINE (UA) NEGATIVE (NEGATIVE); KETONES,URINE NEGATIVE (NEGATIVE); LEUKOCYTE ESTERASE ,URINE 1+ (NEGATIVE); NITRITE,URINE NEGATIVE (NEGATIVE); PH,URINE 5 (4.5-8.0); PROTEIN,URINE NEGATIVE (NEGATIVE); UROBILINOGEN,URINE NORMAL MG/DL (0.0-1.0)
[2018-12-05 09:43] LABS: ANION GAP 0 mmol/L (5-15); BLOOD UREA NITROGEN 11 mg/dL (7-18); CALCIUM 8.2 MG/DL (8.5-10.1); CARBON DIOXIDE 32 MMOL/L (21-32); CHLORIDE 106 MMOL/L (98-107); CREATININE 0.7 MG/DL (0.55-1.30); POTASSIUM 4.1 MMOL/L (3.5-5.1); SODIUM 138 MMOL/L (136-145)
[2018-12-05 09:56] LABS: ALANINE AMINOTRANSFERASE 15 U/L (12-78); ALBUMIN 2.6 G/DL (3.4-5.0); ALBUMIN/GLOBULIN RATIO 0.8 (1.0-2.7); ALKALINE PHOSPHATASE 37 U/L (46-116); ASPARTATE AMINO TRANSFERASE 15 U/L (15-37); BILIRUBIN,TOTAL 0.1 MG/DL (0.2-1.0); CKMB 0.6 NG/ML (0.0-3.6); CREATINE KINASE 78 U/L (26-308)
[2018-12-05 09:58] VITALS: BP 131/77
--- NOTE | 2018-12-05 10:28 | NUR ---
ED Nurse Note: pt is admitted to the hospital and report was given to Beto FUENTES
--- NOTE | 2018-12-05 10:30 | NUR ---
NURSE NOTES: Received patient from ED. AO x 4. Patient is ambulatory. No c/o of distress/pain. IV 18g on L AC intact and patent, running vanco. Colostomy bag on the left lower abdomen. surgical site on the abdomen. [place] have been removed recently. Stable vital sign. Orientation given on unit. All belongings are accounted for. Bed in the lowest, and locked. Call light within reach. Will continue to monitor
--- NOTE | 2018-12-05 10:34 | NUR ---
ED Nurse Note: pt was transfered to ms floor via [facility] stable vs and with all belongings.
[2018-12-05] MEDS ORDERED: Tylenol #3 tab (300mg/30mg) ORAL PRN (11:30)
[2018-12-05 12:00] VITALS: BP 150/92
--- NOTE | 2018-12-05 12:18 | Consultation ---
History of Present Illness General Reason for Hospitalization: General Complaint Present Illness HPI 38M hx of diverticulitis since 2013 had perforated complicated diverticulitis november 22 requiring maile's at [facility]. was discharged with colostomy in stable condition. presented with abd pain and drainage from wound. blood cultures positive. admitted for care. surgery called to evaluate. patient seen, chart reviewed, patient examined. does not want to go back to [facility] and has note been able to get in contact with his primary surgeon Allergies: Coded Allergies: No Known Allergies (Unverified , 05/18/13) Medication History Scheduled Cephalexin* (Keflex*), 500 MG ORAL EVERY 6 HOURS Ciprofloxacin Hcl* (Ciprofloxacin Hcl*), 500 MG ORAL EVERY 12 HOURS Ciprofloxacin Hcl* (Ciprofloxacin Hcl*), 500 MG ORAL Q12H Docusate Sodium* (Colace*), 100 MG ORAL THREE TIMES A DAY Doxycycline Monohydrate* (Doxycycline Monohydrate*), 100 MG ORAL Q12H Levofloxacin* (Levaquin*), 500 MG ORAL DAILY Levofloxacin* (Levaquin*), 500 MG ORAL DAILY Levofloxacin* (Levaquin*), 500 MG ORAL DAILY Metronidazole* (Flagyl*), 500 MG ORAL EVERY 8 HOURS Metronidazole* (Flagyl*), 500 MG ORAL EVERY 8 HOURS Metronidazole* (Flagyl*), 500 MG ORAL BID No Known Medications* (NKM - No Known Medications*), 0 ., (Reported) Ondansetron Odt* (Zofran Odt*), 4 MG BC EVERY 8 HOURS Scheduled PRN Acetaminophen With Codeine (T#3) (Tylenol #3 Tab*), 1 TAB ORAL Q8H PRN for For Pain Acetaminophen With Codeine (T#3) (Tylenol #3 Tab*), 1 TAB ORAL Q8H PRN for For Pain Acetaminophen With Codeine (T#3) (Tylenol #3 Tab*), 1 TAB ORAL Q6HR PRN for For Pain Acetaminophen* (Tylenol Extra Strength*), 500 MG ORAL Q8H PRN for Prn Headache/ Temp > 101 Ibuprofen* (Motrin*), 600 MG ORAL Q6H PRN for For Pain, (Reported) Ondansetron (Zofran), 4 MG ORAL Q8HR PRN for Nausea & Vomiting Ondansetron Odt* (Zofran Odt*), 4 MG ORAL Q8H PRN for Nausea & Vomiting Tramadol Hcl* (Ultram*), 50 MG ORAL Q6H PRN for For Pain Patient History History Provided By: Patient, Medical Record, PMD Healthcare decision maker Resuscitation status Advanced Directive on File Past Medical/Surgical History Past Medical/Surgical History: (1) abdominal pain (2) [id number] (3) Gastroenteritis (4) Diverticulitis (5) abdominal pain (6) Surgical wound infection (7) Postoperative wound infection (8) Positive blood culture (9) Bacteremia Review of Systems Review of Symptoms General ROS: no weight loss or fever Psychological ROS: no depression or mood changes, no memory loss Ophthalmic ROS: no visual changes or eye irritation ENT ROS: no nasal congestion, hearing loss, dizziness Allergy and Immunology ROS: no allergic symptoms or urticaria Hematological and Lymphatic ROS: no swollen glands, unusual bleeding or bruising Endocrine ROS: no polyuria, polydipsia, weight changes, temperature intolerance Respiratory ROS: no cough, shortness of breath, or wheezing Cardiovascular ROS: no chest pain or dyspnea on exertion Gastrointestinal ROS: denies abdominal pain, no bright red blood in stool. Musculoskeletal ROS: no myalgias or arthralgias Neurological ROS: no TIA or stroke symptoms Dermatological ROS: no new or changing skin lesions, rashes or pruritis Physical Exam Physical Exam General appearance: alert, cooperative, no distress, appears stated age Head: Normocephalic, without obvious abnormality, atraumatic Eyes: conjunctivae/corneas clear. PERRL, EOM's intact. Fundi benign Throat: Lips, mucosa, and tongue normal. Teeth and gums normal Neck: supple, symmetrical, trachea midline, no adenopathy, thyroid: not enlarged, symmetric, no tenderness/mass/nodules, no carotid bruit and no JVD Lungs: clear to auscultation bilaterally Heart: regular rate and rhythm, S1, S2 normal, no murmur, click, rub or gallop Abdomen: soft, non-tender. Bowel sounds normal. No masses, no organomegaly Extremities: extremities normal, atraumatic, no cyanosis or edema Pulses: 2+ and symmetric Skin: Skin color, texture, turgor normal. No rashes or lesions Neurologic: Grossly normal Last 24 Hour Vital Signs Date Time Temp Pulse Resp B/P (MAP) Pulse Ox O2 Delivery O2 Flow Rate FiO2 8/3/19 10:34 98.0 79 23 128/78 100 12/05/18 09:58 77 17 131/77 100 Room Air 12/05/18 08:10 92 19 Room Air 12/05/18 08:10 98.1 92 19 130/88 97 Room Air 12/05/18 07:39 98.1 92 19 130/88 (102) 97 Room Air Laboratory Tests Test 12/05/18 08:20 White Blood Count 4.8 K/UL (4.8-10.8) Red Blood Count 3.34 M/UL (4.70-6.10) L Hemoglobin 9.8 G/DL (14.2-18.0) L Hematocrit 30.1 % (42.0-52.0) L Mean Corpuscular Volume 90 FL (80-99) Mean Corpuscular Hemoglobin 29.4 PG (27.0-31.0) Mean Corpuscular Hemoglobin Concent 32.6 G/DL (32.0-36.0) Red Cell Distribution Width 11.8 % (11.6-14.8) Platelet Count 311 K/UL (150-450) Mean Platelet Volume 5.8 FL (6.5-10.1) L Neutrophils (%) (Auto) 61.7 % (45.0-75.0) Lymphocytes (%) (Auto) 22.5 % (20.0-45.0) Monocytes (%) (Auto) 11.4 % (1.0-10.0) H Eosinophils (%) (Auto) 2.9 % (0.0-3.0) Basophils (%) (Auto) 1.5 % (0.0-2.0) Urine Color Pale yellow Urine Appearance Clear Urine pH 5 (4.5-8.0) Urine Specific [place] 1.030 (1.005-1.035) Urine Protein Negative (NEGATIVE) Urine Glucose (UA) Negative (NEGATIVE) Urine Ketones Negative (NEGATIVE) Urine Blood 1+ (NEGATIVE) H Urine Nitrite Negative (NEGATIVE) Urine Bilirubin Negative (NEGATIVE) Urine Urobilinogen Normal MG/DL (0.0-1.0) Urine Leukocyte Esterase 1+ (NEGATIVE) H Urine RBC 2-4 /HPF (0 - 0) H Urine WBC 2-4 /HPF (0 - 0) Urine Squamous Epithelial Cells Occasional /LPF Urine Bacteria Occasional /HPF (NONE) Sodium Level 138 MMOL/L (136-145) Potassium Level 4.1 MMOL/L (3.5-5.1) Chloride Level 106 MMOL/L (98-107) Carbon Dioxide Level 32 MMOL/L (21-32) Anion Gap 0 mmol/L (5-15) L Blood Urea Nitrogen 11 mg/dL (7-18) Creatinine 0.7 MG/DL (0.55-1.30) Estimat Glomerular Filtration Rate > 60 mL/min (>60) Glucose Level 82 MG/DL (74-106) Lactic Acid Level 0.60 mmol/L (0.4-2.0) Calcium Level 8.2 MG/DL (8.5-10.1) L Total Bilirubin 0.1 MG/DL (0.2-1.0) L Aspartate Amino Transf (AST/SGOT) 15 U/L (15-37) Alanine Aminotransferase (ALT/SGPT) 15 U/L (12-78) Alkaline Phosphatase 37 U/L (46-116) L Total Creatine Kinase 78 U/L (26-308) Creatine Kinase MB 0.6 NG/ML (0.0-3.6) Creatine Kinase MB Relative Index 0.7 Troponin I 0.000 ng/mL (0.000-0.056) Total Protein 5.7 G/DL (6.4-8.2) L Albumin 2.6 G/DL (3.4-5.0) L Globulin 3.1 g/dL Albumin/Globulin Ratio 0.8 (1.0-2.7) L Microbiology Date/Time Source Procedure Growth Status 12/05/18 09:14 Rectum Received Height (Feet): 5 Height (Inches): 10.00 Weight (Pounds): 186 Medications Current Medications Medications (Trade) Dose Ordered Sig/Radha Route PRN Reason Start Time Stop Time Status Last Admin Dose Admin Acetaminophen (Tylenol) 650 mg Q4H PRN ORAL Mild Pain (Pain Scale 1-3) 12/05/18 11:30 01/04/19 11:29 Acetaminophen/ Codeine Phosphate (Tylenol #3) 1 tab Q6HR PRN ORAL FOR MODERATE PAIN 12/05/18 11:30 12/12/18 11:29 Ciprofloxacin (Cipro 500mg tab) 500 mg Q12HR ORAL 12/05/18 12:30 12/12/18 12:29 Dextrose (Dextrose 50%) 25 ml Q30M PRN IV Hypoglycemia 12/05/18 11:30 01/04/19 11:29 Dextrose (Dextrose 50%) 50 ml Q30M PRN IV Hypoglycemia 12/05/18 11:30 01/04/19 11:29 Ondansetron HCl (Zofran) 4 mg Q6H PRN IVP Nausea & Vomiting 12/05/18 11:30 01/04/19 11:29 Zolpidem Tartrate (Ambien) 5 mg HSPRN PRN ORAL Insomnia 12/05/18 11:30 12/12/18 11:29 Assessment/Plan Problem List: (1) Surgical wound infection Assessment & Plan: midline with drainage CT noted - no abscess on CT but on exam noted fluctuance and drainage yon removed at bedside. wound opened and evacuated fluid collection / infection wound packing and dressings applied cont with dressings iv abx okay for diet d/c planning ICD Codes: T81.49XA - Infection following a procedure, other surgical site, initial encounter SNOMED: 66014345, 927991742 (2) Postoperative wound infection ICD Codes: T81.49XA - Infection following a procedure, other surgical site, initial encounter SNOMED: 62406538, 945764067 (3) abdominal pain (4) Bacteremia ICD Codes: R78.81 - Bacteremia SNOMED: 4684148 (5) Diverticulitis (6) Gastroenteritis (7) [id number] (8) Positive blood culture ICD Codes: R78.81 - Bacteremia SNOMED: 356340149 (9) abdominal pain Forrest Mitchell Dec 05, 2018 12:18
[2018-12-05] MEDS: Ciprofloxacin 500mg tab ORAL SCH ×2 (12:50→20:18)
[2018-12-05] MEDS: Tylenol #3 tab (300mg/30mg) ORAL PRN ×2 (13:53→20:18)
[2018-12-05] MEDS: Piperacillin/Tazobactam 3.375 GM in NS 110 ML IVPB SCH (15:42)
[2018-12-05 16:00] VITALS: BP 136/76
[2018-12-05] MEDS: Vancomycin 1gm/D5W 275ml IVPB SCH ×2 (17:56)
[2018-12-05] MEDS: Docusate 100mg cap ORAL SCH (18:22)
--- NOTE | 2018-12-05 18:37 | NUR ---
zCASE MANAGEMENT: REVIEW 38Y/M PRESENTED TO ED FROM HOME CC: POSITIVE BLOOD CX S/P PARTIAL BOWEL RESECTION & COLOSTOMY PLACEMENT 11/23 SI: BACTEREMIA . ABD WALL WOUND INFECTION T 98.1 HR 92 RR 19 BP 130/88 SAT 97% ROOM AIR H/H 9.8/30.1 A-GAP 0 IS: NS IVF BOLUS X1 FLAGYL IV X1 CEFEPIME IV X1 VANCO IV X1 PATIENT ADMITTED TO MED/SURG UNIT 12/05/2018 DCP: PATIENT IS FROM HOME
--- NOTE | 2018-12-05 19:34 | NUR ---
HAND-OFF: Report given to ALFREDO Alvarado.
--- NOTE | 2018-12-05 19:43 | History & Physical ---
History and Physical History & Physicial HP dictated # [id number] Kevyn Verdin MD Dec 05, 2018 19:43
--- NOTE | 2018-12-05 19:46 | NUR ---
NURSE NOTES: PATIENT IN BED, AOX4. IVS IN PLACE. NO S/S DISTRESS NOTED. BED IN LOWEST POSITION, CALL LIGHT WITHIN REACH. VISITOR AT BEDSIDE. WILL CONTINUE TO MONITOR.
[2018-12-05 19:57] VITALS: BP 124/87
[2018-12-05] MEDS: Zolpidem 5mg tab ORAL PRN (23:50)
[2018-12-06] VITALS: BP 118/74
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
[2018-12-06] MEDS: Piperacillin/Tazobactam 3.375 GM in NS 110 ML IVPB SCH ×4 (00:32→23:29)
[2018-12-06] MEDS: Vancomycin 1gm/D5W 275ml IVPB SCH ×2 (00:32)
[2018-12-06 04:41] VITALS: BP 120/78
--- NOTE | 2018-12-06 05:58 | NUR ---
NURSE NOTES: PATIENT IN NO DISTRESS, STABLE.
--- NOTE | 2018-12-06 07:35 | NUR ---
NURSE NOTES: Received pt in bed. AO x 4. No c/o of pain/distress. IV 18g on L AC, and 22g on L FA, intact and patent, with saline lock. Bed in the lowest, and locked. Call light within reach. Will continue to monitor.
[2018-12-06 08:00] VITALS: BP 127/73
[2018-12-06] MEDS: Tylenol #3 tab (300mg/30mg) ORAL PRN ×2 (08:01→17:47)
[2018-12-06] MEDS: Docusate 100mg cap ORAL SCH ×2 (08:01→17:44)
[2018-12-06] MEDS: Ciprofloxacin 500mg tab ORAL SCH ×2 (08:01→21:23)
[2018-12-06] MEDS: Vancomycin 1.25gm Premix IVPB SCH ×2 (10:10→17:44)
[2018-12-06 12:00] VITALS: BP 130/86
--- NOTE | 2018-12-06 12:50 | General Progress Note ---
Assessment/Plan Problem List: (1) Bacteremia ICD Codes: R78.81 - Bacteremia SNOMED: 1195630 (2) Surgical wound infection ICD Codes: T81.49XA - Infection following a procedure, other surgical site, initial encounter SNOMED: 70030326, 585244106 Assessment/Plan: abxs check cultures Discussed with ID Subjective Allergies: Coded Allergies: No Known Allergies (Unverified , 05/18/13) Subjective drainage is better Objective Last 24 Hour Vital Signs Date Time Temp Pulse Resp B/P (MAP) Pulse Ox O2 Delivery O2 Flow Rate FiO2 12/06/18 12:00 97.0 65 18 130/86 (101) 99 12/06/18 09:00 Room Air 12/06/18 08:00 97.4 80 18 127/73 (91) 99 12/06/18 04:41 97.8 86 18 120/78 (92) 100 12/06/18 00:20 98.8 12/06/18 00:00 98.6 81 18 118/74 (89) 98 12/05/18 20:59 Room Air 12/05/18 20:48 98.8 12/05/18 19:57 98.8 84 18 124/87 (99) 98 12/05/18 16:00 98.0 83 18 136/76 (96) 100 Intake and Output 12/05/18 12/06/18 19:00 07:00 Intake Total 2630 ml 1557.500 ml Balance 2630 ml 1557.500 ml Intake IV Total 2630 ml 1557.500 ml # Voids 1 3 Laboratory Tests 12/06/18 08:34: Vancomycin Level Trough 9.6 Height (Feet): 5 Height (Inches): 8.00 Weight (Pounds): 186 Cardiovascular: normal rate Respiratory/Chest: lungs clear Abdomen: non tender, soft Kevyn Verdin MD Dec 06, 2018 12:50
[2018-12-06 16:00] VITALS: BP 122/75
--- NOTE | 2018-12-06 17:12 | NUR ---
CASE MANAGEMENT: REVIEW SI: BACTEREMIA . ABD WALL WOUND INFECTION T 97.4 HR 65 RR 18 BP 127/73 SAT 99% ROOM AIR IS: VANCO IV Q8HR ZOSYN IV Q8HR CIPRO PO Q12HR TYLENOL #3 Q6HR PRN MED/SURG STATUS DCP: PATIENT IS FROM HOME
--- NOTE | 2018-12-06 19:07 | NUR ---
HAND-OFF: Report given to ALFREDO Farrell.
--- NOTE | 2018-12-06 19:44 | NUR ---
NURSE NOTES: Received report from ALFREDO Pérez. Patient is in bed, awake and alert x4. In room air with no signs of distress or SOB. Bed is locked and in lowest position. Both IVs are intact. Call light is in reach. Will continue to monitor.
[2018-12-06 20:00] VITALS: BP 122/71
--- NOTE | 2018-12-06 20:29 | Surgery Progress Note ---
Surgery Progress Note Subjective Additional Comments late entry as patient seen earlier today. exam stable. dressing changed doing better Objective Last 24 Hour Vital Signs Date Time Temp Pulse Resp B/P (MAP) Pulse Ox O2 Delivery O2 Flow Rate FiO2 12/06/18 16:00 97.9 83 20 122/75 (91) 98 12/06/18 12:00 97.0 65 18 130/86 (101) 99 12/06/18 09:00 Room Air 12/06/18 08:00 97.4 80 18 127/73 (91) 99 12/06/18 04:41 97.8 86 18 120/78 (92) 100 12/06/18 00:20 98.8 12/06/18 00:00 98.6 81 18 118/74 (89) 98 12/05/18 20:59 Room Air 12/05/18 20:48 98.8 I&O Intake and Output 12/05/18 12/06/18 19:00 07:00 Intake Total 2630 ml 1557.500 ml Balance 2630 ml 1557.500 ml IV Total 2630 ml 1557.500 ml # Voids 1 3 Dressing: saturated Wound: clean Cardiovascular: RSR Respiratory: clear Abdomen: soft, flat, non-tender, present bowel sounds Extremities: no edema, no tenderness, no cyanosis Laboratory Tests Test 12/06/18 08:34 Vancomycin Level Trough 9.6 ug/mL (5.0-12.0) Plan Problems: (1) Surgical wound infection Assessment & Plan: midline with drainage CT noted - no abscess on CT but on exam noted fluctuance and drainage yon removed at bedside. wound opened and evacuated fluid collection / infection wound packing and dressings applied cont with dressings iv abx okay for diet d/c planning (2) Postoperative wound infection (3) abdominal pain (4) Bacteremia (5) Diverticulitis (6) Gastroenteritis (7) [id number] (8) Positive blood culture (9) abdominal pain Forrest Mitchell Dec 06, 2018 20:29
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
--- NOTE | 2018-12-06 21:15 | NUR ---
Patient stated his pain medications weren't working and asked for something more effective. MD notified. New orders given and carried out.
[2018-12-06] MEDS: HYDROcodone/Acetamin 10/325 tab ORAL PRN (21:25)
[2018-12-06] MEDS: Zolpidem 5mg tab ORAL PRN (23:30)
--- NOTE | 2018-12-06 23:57 | NUR ---
NURSE NOTES: Both abdominal dressings changed.
[2018-12-07] VITALS: BP 116/68
[2018-12-07] MEDS: Vancomycin 1.25gm Premix IVPB SCH ×2 (01:51→10:34)
[2018-12-07 04:00] VITALS: BP 120/70
[2018-12-07 07:04] LABS: BASOPHILS % (AUTO) 1.9 % (0.0-2.0); LYMPHOCYTES % (AUTO) 37.9 % (20.0-45.0); MEAN CORPUSCULAR VOLUME 89 FL (80-99); MONOCYTES % (AUTO) 13.1 % (1.0-10.0); NEUTROPHILS % (AUTO) 41.2 % (45.0-75.0); PLATELET COUNT 305 K/UL (150-450); RED BLOOD COUNT 3.36 M/UL (4.70-6.10); RED CELL DISTRIBUTION WIDTH 12.1 % (11.6-14.8)
[2018-12-07 07:05] LABS: ANION GAP 2 mmol/L (5-15); BLOOD UREA NITROGEN 10 mg/dL (7-18); CALCIUM 8.7 MG/DL (8.5-10.1); CARBON DIOXIDE 32 MMOL/L (21-32); CHLORIDE 105 MMOL/L (98-107); CREATININE 0.8 MG/DL (0.55-1.30); POTASSIUM 3.9 MMOL/L (3.5-5.1); SODIUM 139 MMOL/L (136-145)
--- NOTE | 2018-12-07 07:09 | NUR ---
HAND-OFF: Report given to ALFREDO Pérez.
--- NOTE | 2018-12-07 07:27 | NUR ---
NURSE NOTES: Received pt in bed. AAO x 4. No c/o pain/distress. IV 22g on L FA and wrist intact and patent, with saline lock. Bed in the lowest, and locked. Call light within reach. Will continue to monitor.
[2018-12-07 08:00] VITALS: BP 130/65
[2018-12-07] MEDS: Piperacillin/Tazobactam 3.375 GM in NS 110 ML IVPB SCH (08:15)
[2018-12-07] MEDS: Docusate 100mg cap ORAL SCH (08:16)
[2018-12-07] MEDS: HYDROcodone/Acetamin 10/325 tab ORAL PRN (08:16)
[2018-12-07] MEDS: Ciprofloxacin 500mg tab ORAL SCH (08:16)
[2018-12-07 12:00] VITALS: BP 124/70
--- NOTE | 2018-12-07 13:05 | Infectious Diseases Prog Note ---
Assessment/Plan Assessment/Plan A: 1. Positive blood culture with Staph Epidermidis, likely contamination 2. Surgical wound infection and abdominal wall cellulitis. 3. Status post colostomy. 4. Anemia. 5. Decreased albumin. RECOMMENDATIONS: Can be discharge with PO Doxycycline X 5 Continue Cipro & Flagyl at home to end treatment of diverticulitis Subjective ROS Limited/Unobtainable: No Constitutional: Reports: no symptoms Respiratory: Reports: no symptoms Cardiovascular: Reports: no symptoms Gastrointestinal/Abdominal: Reports: no symptoms Genitourinary: Reports: no symptoms Allergies: Coded Allergies: No Known Allergies (Unverified , 05/18/13) Objective Vital Signs Last 24 Hour Vital Signs Date Time Temp Pulse Resp B/P (MAP) Pulse Ox O2 Delivery O2 Flow Rate FiO2 12/07/18 12:00 97.7 86 20 124/70 (88) 97 12/07/18 09:00 Room Air 12/07/18 08:00 98.9 68 19 130/65 (86) 97 12/07/18 04:00 98.4 86 18 120/70 (87) 98 12/07/18 00:00 99.1 94 18 116/68 (84) 98 12/06/18 21:00 Room Air 12/06/18 20:00 98.8 98 18 122/71 (88) 98 12/06/18 16:00 97.9 83 20 122/75 (91) 98 Height (Feet): 5 Height (Inches): 8.00 Weight (Pounds): 186 General Appearance: no acute distress HEENT: mucous membranes moist Respiratory/Chest: lungs clear Cardiovascular: normal rate Abdomen: soft, non tender, other - s/p colostomy Extremities: no edema Skin: other - small open wouds in uper & lower border of abdominal surgical wound Microbiology Date/Time Source Procedure Growth Status 12/05/18 08:35 Blood Blood Culture - Preliminary NO GROWTH AFTER 24 HOURS Resulted 12/05/18 08:20 Blood Blood Culture - Preliminary NO GROWTH AFTER 24 HOURS Resulted 12/05/18 09:14 Nasal Nares MRSA Culture - Final NO METHICILLIN RESISTANT STAPH AUREUS... Complete 12/05/18 09:14 Rectum VRE Culture - Final NO VANCOMYCIN RESISTANT ENTEROCOCCUS ... Complete 12/05/18 09:14 Rectum - Final NO CARBAPENEM-RESISTANT ENTEROBACTERI... Complete Laboratory Tests Test 12/07/18 05:40 12/07/18 09:00 White Blood Count 4.0 K/UL (4.8-10.8) L Red Blood Count 3.36 M/UL (4.70-6.10) L Hemoglobin 10.0 G/DL (14.2-18.0) L Hematocrit 30.0 % (42.0-52.0) L Mean Corpuscular Volume 89 FL (80-99) Mean Corpuscular Hemoglobin 29.6 PG (27.0-31.0) Mean Corpuscular Hemoglobin Concent 33.2 G/DL (32.0-36.0) Red Cell Distribution Width 12.1 % (11.6-14.8) Platelet Count 305 K/UL (150-450) Mean Platelet Volume 5.9 FL (6.5-10.1) L Neutrophils (%) (Auto) 41.2 % (45.0-75.0) L Lymphocytes (%) (Auto) 37.9 % (20.0-45.0) Monocytes (%) (Auto) 13.1 % (1.0-10.0) H Eosinophils (%) (Auto) 6.0 % (0.0-3.0) H Basophils (%) (Auto) 1.9 % (0.0-2.0) Sodium Level 139 MMOL/L (136-145) Potassium Level 3.9 MMOL/L (3.5-5.1) Chloride Level 105 MMOL/L (98-107) Carbon Dioxide Level 32 MMOL/L (21-32) Anion Gap 2 mmol/L (5-15) L Blood Urea Nitrogen 10 mg/dL (7-18) Creatinine 0.8 MG/DL (0.55-1.30) Estimat Glomerular Filtration Rate > 60 mL/min (>60) Glucose Level 82 MG/DL (74-106) Calcium Level 8.7 MG/DL (8.5-10.1) Vancomycin Level Trough 14.0 ug/mL (5.0-12.0) H Current Medications Medications (Trade) Dose Ordered Sig/Radha Route PRN Reason Start Time Stop Time Status Last Admin Dose Admin Acetaminophen (Tylenol) 650 mg Q4H PRN ORAL Mild Pain (Pain Scale 1-3) 12/05/18 11:30 01/04/19 11:29 Acetaminophen/ Codeine Phosphate (Tylenol #3) 1 tab Q6HR PRN ORAL FOR SEVERE PAIN 12/05/18 12:30 12/12/18 11:29 12/06/18 17:47 Acetaminophen/ Hydrocodone Bitart (Mobile 10/325) 1 tab Q4H PRN ORAL Severe Pain (Pain Scale 7-10) 12/06/18 21:15 12/13/18 21:14 12/07/18 08:16 Ciprofloxacin (Cipro 500mg tab) 500 mg Q12HR ORAL 12/05/18 12:30 12/12/18 12:29 12/07/18 08:16 Dextrose (Dextrose 50%) 25 ml Q30M PRN IV Hypoglycemia 12/05/18 11:30 01/04/19 11:29 Dextrose (Dextrose 50%) 50 ml Q30M PRN IV Hypoglycemia 12/05/18 11:30 01/04/19 11:29 Docusate Sodium (Colace) 100 mg TWICE A DAY ORAL 12/05/18 18:00 01/04/19 17:59 12/07/18 08:16 Ibuprofen (Motrin) 600 mg Q6H PRN ORAL FOR MODERATE PAIN 12/05/18 12:30 01/04/19 12:29 12/06/18 15:35 Ondansetron HCl (Zofran) 4 mg Q6H PRN IVP Nausea & Vomiting 12/05/18 11:30 01/04/19 11:29 Piperacillin Sod/ Tazobactam Sod 3.375 gm/Sodium Chloride 110 ml @ 27.5 mls/hr Q8H IVPB 12/06/18 08:00 12/12/18 15:29 12/07/18 08:15 Vancomycin HCl (Vanco rx to dose) 1 ea DAILY PRN MISC Per rx protocol 12/05/18 14:30 01/04/19 14:29 Vancomycin HCl/ Dextrose 275 ml @ 183.333 mls/hr Q8H IVPB 12/06/18 10:00 12/11/18 09:59 12/07/18 10:34 Zolpidem Tartrate (Ambien) 5 mg HSPRN PRN ORAL Insomnia 12/05/18 11:30 12/12/18 11:29 12/06/18 23:30 Sammy Verdin MD Dec 07, 2018 13:05
--- NOTE | 2018-12-07 13:53 | General Progress Note ---
Assessment/Plan Problem List: (1) Bacteremia ICD Codes: R78.81 - Bacteremia SNOMED: 1853915 (2) Surgical wound infection ICD Codes: T81.49XA - Infection following a procedure, other surgical site, initial encounter SNOMED: 02268611, 725814296 Assessment/Plan: po Doxycycline Dc today Subjective Allergies: Coded Allergies: No Known Allergies (Unverified , 05/18/13) Subjective feels ok Objective Last 24 Hour Vital Signs Date Time Temp Pulse Resp B/P (MAP) Pulse Ox O2 Delivery O2 Flow Rate FiO2 12/07/18 12:00 97.7 86 20 124/70 (88) 97 12/07/18 09:00 Room Air 12/07/18 08:00 98.9 68 19 130/65 (86) 97 12/07/18 04:00 98.4 86 18 120/70 (87) 98 12/07/18 00:00 99.1 94 18 116/68 (84) 98 12/06/18 21:00 Room Air 12/06/18 20:00 98.8 98 18 122/71 (88) 98 12/06/18 16:00 97.9 83 20 122/75 (91) 98 Intake and Output 12/06/18 12/07/18 18:59 06:59 Intake Total 1665.000 ml 2562.5 ml Balance 1665.000 ml 2562.5 ml Intake Oral 1280 ml 1280 ml IV Total 385.000 ml 1282.5 ml # Voids 6 4 # Bowel Movements 1 1 Laboratory Tests 12/07/18 05:40: White Blood Count 4.0L, Red Blood Count 3.36L, Hemoglobin 10.0L, Hematocrit 30.0L, Mean Corpuscular Volume 89, Mean Corpuscular Hemoglobin 29.6, Mean Corpuscular Hemoglobin Concent 33.2, Red Cell Distribution Width 12.1, Platelet Count 305, Mean Platelet Volume 5.9L, Neutrophils (%) (Auto) 41.2L, Lymphocytes (%) (Auto) 37.9, Monocytes (%) (Auto) 13.1H, Eosinophils (%) (Auto) 6.0H, Basophils (%) (Auto) 1.9, Sodium Level 139, Potassium Level 3.9, Chloride Level 105, Carbon Dioxide Level 32, Anion Gap 2L, Blood Urea Nitrogen 10, Creatinine 0.8, Estimat Glomerular Filtration Rate > 60, Glucose Level 82, Calcium Level 8.7 12/07/18 09:00: Vancomycin Level Trough 14.0H Height (Feet): 5 Height (Inches): 8.00 Weight (Pounds): 186 Kevyn Verdin MD Dec 07, 2018 13:53
--- NOTE | 2018-12-07 15:14 | Surgery Progress Note ---
Surgery Progress Note Subjective Symptoms: improved, pain absent Objective Last 24 Hour Vital Signs Date Time Temp Pulse Resp B/P (MAP) Pulse Ox O2 Delivery O2 Flow Rate FiO2 12/07/18 12:00 97.7 86 20 124/70 (88) 97 12/07/18 09:00 Room Air 12/07/18 08:00 98.9 68 19 130/65 (86) 97 12/07/18 04:00 98.4 86 18 120/70 (87) 98 12/07/18 00:00 99.1 94 18 116/68 (84) 98 12/06/18 21:00 Room Air 12/06/18 20:00 98.8 98 18 122/71 (88) 98 12/06/18 16:00 97.9 83 20 122/75 (91) 98 I&O Intake and Output 12/06/18 12/07/18 18:59 06:59 Intake Total 1665.000 ml 2562.5 ml Balance 1665.000 ml 2562.5 ml Intake Oral 1280 ml 1280 ml IV Total 385.000 ml 1282.5 ml # Voids 6 4 # Bowel Movements 1 1 Dressing: saturated Wound: clean Cardiovascular: RSR Respiratory: clear Abdomen: soft, flat Extremities: no edema, no tenderness Laboratory Tests Test 12/07/18 05:40 12/07/18 09:00 White Blood Count 4.0 K/UL (4.8-10.8) L Red Blood Count 3.36 M/UL (4.70-6.10) L Hemoglobin 10.0 G/DL (14.2-18.0) L Hematocrit 30.0 % (42.0-52.0) L Mean Corpuscular Volume 89 FL (80-99) Mean Corpuscular Hemoglobin 29.6 PG (27.0-31.0) Mean Corpuscular Hemoglobin Concent 33.2 G/DL (32.0-36.0) Red Cell Distribution Width 12.1 % (11.6-14.8) Platelet Count 305 K/UL (150-450) Mean Platelet Volume 5.9 FL (6.5-10.1) L Neutrophils (%) (Auto) 41.2 % (45.0-75.0) L Lymphocytes (%) (Auto) 37.9 % (20.0-45.0) Monocytes (%) (Auto) 13.1 % (1.0-10.0) H Eosinophils (%) (Auto) 6.0 % (0.0-3.0) H Basophils (%) (Auto) 1.9 % (0.0-2.0) Sodium Level 139 MMOL/L (136-145) Potassium Level 3.9 MMOL/L (3.5-5.1) Chloride Level 105 MMOL/L (98-107) Carbon Dioxide Level 32 MMOL/L (21-32) Anion Gap 2 mmol/L (5-15) L Blood Urea Nitrogen 10 mg/dL (7-18) Creatinine 0.8 MG/DL (0.55-1.30) Estimat Glomerular Filtration Rate > 60 mL/min (>60) Glucose Level 82 MG/DL (74-106) Calcium Level 8.7 MG/DL (8.5-10.1) Vancomycin Level Trough 14.0 ug/mL (5.0-12.0) H Plan Problems: (1) Surgical wound infection Assessment & Plan: midline with drainage CT noted - no abscess on CT but on exam noted fluctuance and drainage yon removed at bedside. wound opened and evacuated fluid collection / infection wound packing and dressings applied cont with dressings iv abx okay for diet d/c planning (2) Postoperative wound infection (3) abdominal pain (4) Bacteremia (5) Diverticulitis (6) Gastroenteritis (7) [id number] (8) Positive blood culture (9) abdominal pain Forrest Mitchell Dec 07, 2018 15:14
[2018-12-07 16:00] VITALS: BP 143/95
--- NOTE | 2018-12-07 16:20 | NUR ---
NURSE NOTES: Patient is discharged to home via private vehicle with . RN escorted pt to the fl. ID and IVs were removed. No s/s infection on the removal site. Prescriptions and discharge instructions were given to take doxycycline x5 and continue Cipro & Flagyl at home to end treatment of diverticulitis. All belongings were accounted for. Stable vital sign.
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
== END 2018-12-07 16:00 | disposition home or self-care (01) | DRG 863 ==
LOC: EMR 07:59 → EDBEDREQ 09:09 → 4E 09:25 → EDBEDREQ 09:52 → 4E 12-07 02:38
DX: T81.49XA Infection following a procedure, other surgical site, initial encounter (principal); R78.81 Bacteremia; K57.92 Diverticulitis of intestine, part unspecified, without perforation or abscess without bleeding; L03.311 Cellulitis of abdominal wall; K52.9 Noninfective gastroenteritis and colitis, unspecified; Z93.3 Colostomy status; D64.9 Anemia, unspecified
CPT/HCPCS: 36415; 71045; 80048; 80053; 80202; 81003; 82550; 82553; 83605; 84484; 85025; 87040; 87081; 93005; 96361; 96365; 96366; 96367; 99285

== ENCOUNTER 2019-04-19 06:15 | Inpatient (IN) | payer BC ==
[~2019-04-19] VITALS: Ht 180.3 cm; Wt 90.4 kg
[2019-04-19] VITALS (16 sets, daily range): BP systolic 123–164; BP diastolic 77–100
[2019-04-19] MEDS ORDERED: NKM (06:57)
[2019-04-19] MEDS ORDERED: LR 1000ml ONE (07:00)
[2019-04-19] MEDS ORDERED: NS Irrig 1000ml ONE (07:00)
[2019-04-19] MEDS ORDERED: Sterile Water Irrig 1000ml IRRIG ONE (07:00)
--- NOTE | 2019-04-19 07:07 | Pre-Procedure Note/Attestation ---
Pre-Procedure Note/Attestation Complete Prior to Procedure Planned Procedure: not applicable Procedure Narrative: colostomy takedown Indications for Procedure Pre-Operative Diagnosis: hx of colostomy Attestation I attest that I discussed the nature of the procedure; its benefits; risks and complications; and alternatives (and the risks and benefits of such alternatives ), prior to the procedure, with the patient (or the patient's legal office services representative). I attest that, if there was a reasonable possibility of needing a blood transfusion, the patient (or the patient's legal office services representative) was given the [facility] standardized written summary, pursuant to the Benjamin Arian Blood Safety Act ([place] Health and Safety Code # 1645, as amended). I attest that I re-evaluated the patient just prior to the surgery and that there has been no change in the patient's H&P, except as documented below: Forrest Mitchell Apr 19, 2019 07:07
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
[2019-04-19] MEDS ORDERED: ceFAZolin sod 2 GM in D5W 110 ML IV ONE (07:15)
--- NOTE | 2019-04-19 07:19 | Anethesia Preoperative Eval ---
Anesthesia Pre-op PMH/ROS General Date of Evaluation: Apr 19, 2019 Anesthesiologist: Cholo ASA Score: ASA 2 Mallampati Score Class I : Soft palate, uvula, fauces, pillars visible Class II: Soft palate, uvula, fauces visible Class III: Soft palate, base of uvula visible Class IV: Only hard plate visible Mallampati Classification: Class II Surgeon: Stephen Diagnosis: Colostomy Surgical Procedure: Colostomy take down Anesthesia History: none Family History: no anesthesia problems Allergies: Coded Allergies: No Known Allergies (Unverified , 05/18/13) Medications: see eMAR Patient NPO?: Yes NPO Date: Apr 18, 2019 NPO Time: 00:00 Past Medical History Cardiovascular: Denies: HTN, CAD, [place], valve dz, arrhythmia, other Pulmonary: Reports: asthma; Denies: COPD, JUANA, other Gastrointestinal/Genitourinary: Reports: GERD, other - diverticulitis; Denies: CRI, ESRD Neurologic/Psychiatric: Denies: dementia, CVA, depression/anxiety, TIA, other Endocrine: Denies: DM, hypothyroidism, steroids, other HEENT: Denies: cataract (L), cataract (R), glaucoma, MODOC (L), MODOC (R), other Hematology/Immune: Denies: anemia, DVT, bleeding disorder, other Musculoskeletal/Integumentary: Denies: OA, RA, DJD, DDD, edema, other PSxH Narrative: colostomy, ankle sx Anesthesia Pre-op Phys. Exam Physician Exam Last Vital Signs Date Time Temp Pulse Resp B/P (MAP) Pulse Ox O2 Delivery O2 Flow Rate FiO2 04/19/19 07:13 96.9 61 20 123/77 (92) 97 04/19/19 06:57 Room Air Constitutional: NAD Cardiovascular: RRR Respiratory: CTA Airway Exam Mallampati Score: Class II MO: full ROM: full Teeth: intact Anesthesia Pre-op A/P Labs see chart Studies Pre-op Studies: EKG - sr Risk Assessment & Plan Assessment: ASA II Plan: GA Status Change Before Surgery: No Pre-Antibiotics Drug: Azalia Allan MD Apr 19, 2019 07:19
[2019-04-19] MEDS ORDERED: Rocuronium Bromide 50mg/5ml Inj IV ONE (07:20)
[2019-04-19] MEDS ORDERED: Lidocaine 1% MPF 10mg/ml 5ml ONE (07:28)
[2019-04-19] MEDS ORDERED: fentaNYL 100 mcg/2 mL IV ONE (07:28)
[2019-04-19] MEDS ORDERED: Midazolam 2mg/2ml Inj ONE (07:28)
[2019-04-19] MEDS ORDERED: Propofol 200mg/20ml IV ONE (07:28)
[2019-04-19] MEDS ORDERED: Dexamethasone 4mg/ml vial ONE (07:45)
[2019-04-19] MEDS ORDERED: Ketorolac 30mg Inj ONE (07:46)
[2019-04-19 07:48] LABS: HEMATOCRIT 39.9 % (42.0-52.0); HEMOGLOBIN 13.7 G/DL (14.2-18.0); LYMPHOCYTES % (AUTO) 47.1 % (20.0-45.0); MEAN CORPUSCULAR VOLUME 86 FL (80-99); MONOCYTES % (AUTO) 10.3 % (1.0-10.0); NEUTROPHILS % (AUTO) 37.6 % (45.0-75.0); PLATELET COUNT 162 K/UL (150-450); RED BLOOD COUNT 4.62 M/UL (4.70-6.10); RED CELL DISTRIBUTION WIDTH 12.7 % (11.6-14.8); WHITE BLOOD COUNT 3.7 K/UL (4.8-10.8)
[2019-04-19] MEDS ORDERED: Bacitracin 50000 Units Vial ONE (07:48)
[2019-04-19] MEDS ORDERED: NeoSporin Gu Irrig 1ml Amp IRRIG ONE (07:48)
[2019-04-19 07:52] LABS: ANION GAP 7 mmol/L (5-15); BLOOD UREA NITROGEN 11 mg/dL (7-18); CALCIUM 8.9 MG/DL (8.5-10.1); CARBON DIOXIDE 28 MMOL/L (21-32); CHLORIDE 105 MMOL/L (98-107); CREATININE 0.9 MG/DL (0.55-1.30); POTASSIUM 3.8 MMOL/L (3.5-5.1); SODIUM 140 MMOL/L (136-145)
[2019-04-19 07:53] LABS: INR 0.9 (0.9-1.1)
[2019-04-19] MEDS ORDERED: LR 1000ml 1,000 ML IVLG SCH (08:09)
[2019-04-19] MEDS ORDERED: Midazolam 2mg/2ml Inj IVP PRN (08:15)
[2019-04-19] MEDS ORDERED: LORazepam Inj 2mg/ml 1ml IV PRN (08:15)
[2019-04-19] MEDS ORDERED: Metoclopramide 10mg/2ml Inj IVP PRN (08:15)
[2019-04-19] MEDS ORDERED: fentaNYL 100 mcg/2 mL IV PRN (08:15)
[2019-04-19] MEDS ORDERED: DiphenhydrAMINE 50mg/ml Inj IVP PRN (08:15)
[2019-04-19] MEDS ORDERED: Betadine 4oz Bottle TOPIC ONE (11:40)
[2019-04-19] MEDS ORDERED: Meperidine 50mg/ml Inj(FOR RIGORS ONLY) ONE (13:03)
--- NOTE | 2019-04-19 13:23 | Immediate Post-Op Evaluation ---
Immediate Post-Op Evalulation Immediate Post-Op Evalulation Procedure: colostomy takedown Date of Evaluation: Apr 19, 2019 Time of Evaluation: 13:24 IV Fluids: 2.2L Blood Products: 0 Estimated Blood Loss: 100 Urinary Output: 1L Blood Pressure Systolic: 131 Blood Pressure Diastolic: 83 Pulse Rate: 73 Respiratory Rate: 17 O2 Sat by Pulse Oximetry: 100 Temperature (Fahrenheit): 97.7 Pain Score (1-10): 0 Nausea: No Vomiting: No Complications 0 Patient Status: awake, reacts, patent, none Hydration Status: adequate Drug: Ancef and flagyl Given Within 1 Hr of Incision: Yes Azalia Guzman MD Apr 19, 2019 13:23
[2019-04-19] MEDS: Hydromorphone 0.5mg/0.5ml inj IVP PRN ×2 (14:09→14:34)
[2019-04-19] MEDS ORDERED: PCA HYDROmorphone 1mg/ml 30 ML IV ONE (15:06)
[2019-04-19] MEDS ORDERED: PCA HYDROmorphone 1mg/ml 30 ML IV PRN (15:10)
[2019-04-19] MEDS ORDERED: Naloxone 0.4mg/ml Inj IVP PRN (15:15)
[2019-04-19] MEDS ORDERED: Rate Change PCA 1 Each MISC PRN (15:15)
[2019-04-19] MEDS ORDERED: Ketorolac 30mg Inj IV PRN (15:15)
[2019-04-19] MEDS ORDERED: PCA Education Pamphlet MISC ONE (15:15)
--- NOTE | 2019-04-19 16:15 | NUR ---
NURSE NOTES: Pt came up to unit via hospital bed in stable condition but w/a lot of pain; at bedside; bed in lowest position; call light/KNOCKDOWN WORKER button within reach; and pt in no apparent distress. IV site intact/asymptomatic; F/C patent/draining; and surgical dressing C/D/I. Oriented pt to room and educated on how to use KNOCKDOWN WORKER; pt verbalized understanding. Will continue to monitor.
--- NOTE | 2019-04-19 16:39 | Brief Operative Note ---
Immediate Post Operative Note Operative Note Pre-op Diagnosis: hx of colostomy Procedure: 1. laparoscopic converted to open colostomy takedown with primary anastomosis 2. extensive open lysis of adhesions 3. open appendectomy 4. omentectomy 5. partial colectomy 6. repair of small bowel enterotomy 7. mobilization of splenic flexure 8. adjacent tissue transfer with skin and subcutaneous flap for closure of prior colostomy defect primarily 9. modifier 22 very difficult procedure Post-op Diagnosis: hx of colostomy extensive intraabdominal adhesions appendix incarcerated with small bowel into pelvis large abdominal wall defect Surgeon: forrest mitchell Additional Surgeons: aleks dugan Anesthesiologist: caitlin Anesthesia: general Specimen: yes - yes Complications: none Condition: stable Fluids: see records Estimated Blood Loss: volume - 100cc Drains: none Implant(s) used?: No Forrest Mitchell Apr 19, 2019 16:39
[2019-04-19] MEDS: D5 1/2NS w/KCl 20mEq 1,000 ML IV SCH (17:13)
[2019-04-19] MEDS: Ketorolac 30mg Inj IV PRN ×2 (17:14→23:28)
[2019-04-19] MEDS: ceFAZolin sod 2 GM in D5W 110 ML IV SCH (18:03)
--- NOTE | 2019-04-19 19:40 | NUR ---
NURSE NOTES: Received report from ALFREDO Corado. Patient is lying semi-fowlers position in bed. He c/o abdominal pain 6/10. K9 HANDLER pump at side with remote in hand. Instructed to push button when it turns green for medication if in pain. Patient is coughing up thick white sputum and c/o SOB on NC 2L oxygen. Rhonchi heard in bilateral lungs upon auscultation. Instructed patient to sit up in bed, utilize incentive spirometer, splint abdomen with pillow, cough and deep breath. MD Mitchell made aware. at bedside, bed in low and locked position with call light within reach. Will continue plan of post op care.
[2019-04-19] MEDS: PCA shift volume MISC SCH (19:43)
--- NOTE | 2019-04-19 19:45 | NUR ---
HAND-OFF: Report given to ALFREDO Perez.
[2019-04-19] MEDS: Heparin 5000 units/ml inj SUBQ SCH (21:24)
--- NOTE | 2019-04-19 22:30 | Operative Note - Dictated ---
DATE OF OPERATION: 04/19/2019 PREOPERATIVE DIAGNOSES: 1. History of colostomy with Liz's procedure for acute perforated diverticulitis in November of 2018. 2. Complicated by abdominal wound dehiscence and infection requiring prolonged local wound care. 3. History of obesity. 4. History of acute diverticulitis. POSTOPERATIVE DIAGNOSES: 1. History of colostomy as above. 2. Extensive intra-abdominal adhesions. 3. Appendix and small bowel incarcerated within the pelvis. 4. Large abdominal wall defect. PROCEDURE PERFORMED: 1. Laparoscopic converted to open colostomy takedown with primary anastomosis. 2. Extensive open lysis of adhesions. 3. Open appendectomy. 4. Open omentectomy. 5. Partial distal colectomy. 6. Repair of small bowel enterotomy. 7. Mobilization of splenic flexure. 8. Adjacent tissue transfer with skin, subcutaneous tissue flap for closure of prior colostomy defect primarily 9. rigid sigmoidoscopy 10. modifier 22, very difficult procedure. ATTENDING SURGEON: Forrest Mitchell M.D. [employer]: Valerie Guillermo M.D. ANESTHESIOLOGIST: Dr. Jeanna Emmanuel. ANESTHESIA: General GETA. ESTIMATED BLOOD LOSS: 100 mL. IV FLUIDS: Please see anesthesia records. COMPLICATIONS: None. DRAINS: None. COUNTS: Sponge and needle count correct x2. ANTIBIOTICS: The patient was given 2 g Ancef IV and 500 mg Flagyl IV. SPECIMENS: 1. Appendix. 2. Omentum. 3. Rectosigmoid colon. 4. Distal colectomy/colostomy. 5. Proximal staple line EEA with Anvil. 6. Distal staple line, EEA. INDICATIONS FOR PROCEDURE: This is a 38-year-old male, who in November of 2018 developed acute perforated diverticulitis requiring urgent surgery at outside facility and had a colectomy with Liz's procedure and colostomy creation. Surgery was complicated by midline wound infection and dehiscence requiring prolonged localized wound care. The patient had recovered substantially since those events and was referred to me for evaluation of colostomy takedown by his current primary care physician, Dr. Augustin Bangura. The patient was seen in the office and noted to be doing very well recovering, living a normal life with a colostomy, comfortable, losing weight, being healthy, and without complication or issues. Given above and the six-month duration since acute events and great recovery, colostomy takedown was indicated and recommended. Risks, benefits, alternatives were discussed with the patient in detail who expressed understanding and consented to surgery. Plan was for laparoscopic assisted colostomy takedown, possible open. Risks, benefits, alternatives were discussed with the patient in detail. Consent was obtained. The patient was scheduled for 04/19/2019. OPERATIVE NOTE: The patient was taken to the operating room and placed on the operating table in lithotomy position with all bony prominences well padded. SCDs were placed. Villatoro catheter was inserted using standard sterile technique. The patient was given 2 g of Ancef IV and 500 mg of Flagyl IV one hour prior to cut time. Preoperative time-out was taken to identify the patient, procedure, operative staff, and surgical staff. General anesthesia was induced and the patient was intubated. The abdomen was clipped, prepped, draped in standard surgical fashion. The colostomy was patched off using Ray-Mayte and Tegaderm. An infraumbilical incision was made using a fresh #15 scalpel and carried down to the fascia, which was elevated and incised. Entry into the abdomen was obtained using open Maxim technique. A 12 mm Maxim trocar was inserted and the abdomen was insufflated to 12 to 15 mmHg. The laparoscope was inserted and abdomen was inspected. No injury from initial trocar placement noted. It was clearly evident that there were extensive omental and bowel adhesions to the anterior abdominal wall circumferentially, especially around the midline. A 5 mm trocar was placed at the inferior aspect of the prior midline incision under direct visualization only few centimeters away from the initial trocar placement. Laparoscopic danielle were used and gentle dissection was had, but unfortunately it was clearly evident that there was extensive adhesions and abdomen was somewhat hostile. Therefore, proceeding with laparoscopic colectomy would not be reasonable and decision made to convert to open. The trocars were removed and the incision was carried utilizing the patient's prior midline abdominal incision using a fresh #10 scalpel. Incision was carried down to the fascia with electrocautery and the abdomen was entered. At this time, an extensive open lysis of adhesions was performed freeing the omentum and small bowel which were densely adhesed to the anterior abdominal wall. Once this was completed, the colostomy was circumferentially dissected out. Following this, we turned our attention to the pelvis to see if we can identify the rectal stump. Approximately four strands of thick blue Prolene sutures were identified in the pelvis, matted together with adhesions of small bowel. Slow gentle dissection was carried with Metzenbaum scissors to dissect the small bowel out of the pelvis which was deep into the pelvis and it was incarcerated and matted into the pelvis. In doing so, it was also evident that the mid and tip of the appendix was very densely adhesed within the pelvis as well along with the small bowel and the remainder of these adhesions. At this time, careful dissection was carried through until all the bowel could be reduced from the pelvis into the abdomen. In doing so, one small enterotomy was made into the small bowel and apex extending down into the pelvis. This was repaired in a two-layer fashion beginning with a 3-0 Vicryl running followed by 3-0 silk interrupted sutures. Adequate repair without any significant loss of bowel lumen was noted. Hemostasis noted. Furthermore, there was some serosal tearing at the mid and distal appendix. Given how the appendix had significantly adhesed itself into the pelvis with the remainder of the small bowel was going to be performed and the difficulty currently being experienced during the surgery in the serosal tearing of the appendix, decision was made to proceed with open appendectomy to ensure no complication and adequately manage potential appendicitis, a very difficult procedure and potential perforation of the appendix and the distal of the appendix due to the inflammation, dissection necessary. A window was made between the appendix and the mesoappendix. The mesoappendix was divided using a linear ELADIO 55 mm stapler. Following this, the mesoappendix was divided using the Thunderbeat energy device. Appendix sent off to pathology as specimen 1. Following this, the small bowel was significantly matted and also attached to the descending colon, splenic flexure, as well as omentum, and on further dissection and evaluation, it was evident that likely the patient had the white line of Toldt on the left side mobilized prior given the amount of small bowel and omental adhesions in the area. Further extensive lysis adhesions carried for the next hour to help for interloop and omental adhesions to be dissected out carefully from the colon and to allow for proper visualization of the anatomy. Once this was completed, it was evident there were some dense adhesions of the small bowel in the left upper quadrant with proximal bowel being dilated and distal bowel being compressed without a direct complete obstruction, but some signs of potential partial obstruction or slowing of the bowel transit. Once these adhesions were resolved by the end of the procedure, the bowel was noted to be significantly improved in such fashions. Once the lysis of adhesion was performed, the bowel was run from ligament of Treitz to the ileocecal valve. The small bowel was otherwise healthy without complication and no other abnormalities other than a small enterotomy, which was repaired during dissection out of the pelvis. The mesoappendix was healthy and viable. The ascending colon, transverse colon that could be identified were otherwise healthy and viable. The stomach was otherwise healthy and viable as well as the gallbladder and the liver. There were some dense adhesions of the left lobe of the liver to the anterior abdominal wall. These were left alone. Following this, small bowel was retracted toward the right upper quadrant and care was taken to dissect out the colostomy. Elliptical skin incision was made around the colostomy at the skin level and was carried down through subcutaneous tissue down to the fascia, which was divided. The colostomy was brought into the abdomen and the area of resection was identified and a window was made at the mesenteric edge and a linear 55 mm stapler was used and the bowel was divided. The mesentery was divided using the Thunderbeat energy device. The specimen was sent off as colostomy/distal colectomy. Following this, it was clearly evident that there was not enough bowel length for proper anastomosis down into the pelvis as there was already tension just at the same level and the colostomy fascia level. The white line of Toldt was redivided after omental adhesions were taken down and there were significant omental adhesions in the left upper quadrant around the splenic flexure as well. The stomach was identified as well as transverse colon and the gastrocolic ligament was divided and an omentectomy was performed to allow for better visualization and clear identification of the anatomy and mobilization of the splenic flexure. Omentectomy was completed using the Thunderbeat energy device. Following this, the splenic flexure was mobilized to allow for appropriate bowel length. Once splenic flexure was mobilized, we were able to clearly identify the distal descending colon that was remaining following into the pelvis without tension to allow for primary anastomosis that would be adequate and satisfactory. Good viable distal bowel noted with good blood supply. Palpable arterial blood flow was clearly evident at the distal aspect near the staple line. Once this was all completed, we turned our attention to the pelvis. In the pelvis, there were a lot of dense adhesions and inflammatory reaction as noted before as well as the four strands of Prolene that were clearly evident. These were believed to be the lateral edges of the remaining distal colon. In further dissecting out, it was evident that a fair amount of the distal sigmoid colon was left and the peritoneal reflection was approximately near 10 centimeters distal to where the Prolene sutures were placed. Given the patient's history and these findings for appropriate reanastomosis, decision was made to perform a distal sigmoid resection of the remaining portion of the sigmoid colon to allow for proper colorectal anastomosis bypassing the sigmoid colon that had prior significant diverticulitis and still has some diverticula. Of note, there was also some diverticula noted in the ascending colon as it was examined during the procedure. The remaining sigmoid colon was circumferentially dissected out down to the peritoneal reflection. Once at the level of the peritoneal flexure in the proximal rectum, the rectosigmoid colon was divided using TA-30 mm linear stapler. The colon was cut and sent to pathology for review. Good hemostasis was noted from the staple line. At this time, the abdomen was irrigated and suctioned clear. No bleeding was identified. Good hemostasis noted. The bowel edges were viable and with good blood supply. There was no tension in the proposed anastomosis to be created. No other issues or complications noted. The attention was turned to the prior colostomy site fascia and a fairly large defect was clearly evident. The fascia seen in the abdominal wall defect was closed in a two-layer fashion beginning with the anterior rectus sheath being reapproximated using a 0 Prolene running suture followed by the posterior rectus sheath and peritoneum being reapproximated using 0 Prolene running suture. Following this, there was clearly a large subcutaneous defect noted which plans for repair at the end of the procedure. At this time, we turned our attention to performing the primary end-to-end colorectal anastomosis. The bowel edge was cut from the distal end of the remaining distal colon and 20 mm EEA Anvil was placed into the bowel lumen. A 2-0 Prolene pursestring suture was then placed and the Anvil appropriately fashioned without complication. Good hemostasis noted. Following this, the 20 mm EEA stapler was entered through the rectum after a rigid sigmoidoscopy was performed. Of note, a rigid sigmoidoscopy was performed at the beginning of the procedure as well to ensure adequacy for continuing with the procedure as well as the anoscopy which was performed in the office setting. Some stool was evacuated from the rectal vault and the EEA stapler was then entered into the rectal vault and clearly identified and noted at the level of recently placed rectal staple line. The pin was deployed and brought through without complication. The Anvil and pin were attached and click was identified and the staple line was closed. The stapler was fired and then removed. The proximal and distal circular EEA stapler donuts were evaluated on the nonsterile back table and clearly evident to be intact without complication. The Anvil and proximal circular staple line was sent to pathology for review as proximal circular EEA staple line and the distal circular staple line was sent to pathology for review as another specimen as well. At this time, decision made to proceed with a leak test. The bowel was grasped between two fingers proximally to the staple line, and using the rigid sigmoidoscopy, the distal rectum was insufflated with air. Saline was placed into the pelvis and no leak was identified as no bubbles were noted. At this time, the pelvis was suctioned out and the gas released from the rectum and the distal colon. Appropriate satisfactory end-to-end anastomosis was made without complication, without leak, without tension and with good blood supply. At this time, we re-inspected the abdomen and no other issues or intraoperative complications were noted. The abdomen was hemostatic, the bowel in its anatomical location, no tension and otherwise stable. At this time, we began the conclusion of our procedure. The midline abdominal fascia was reapproximated using a 0 running PDS loop suture. Once this was completed, the subcutaneous tissue was irrigated, cleansed, and hemostasis obtained using electrocautery. There was a large defect in the prior colostomy site given the patient's size and habitus and it was fairly deep subcutaneous tissue. Plans were for primary closure in the patient's best interest about having a large wound and therefore adjacent tissue transfer with skin and subcutaneous flap were decided for the closure so that the defect can be closed after the area was suctioned and cleaned. The patient had a large wound that required prolonged care. The subcutaneous tissue was elevated off the fascia from the midline laterally towards the prior colostomy defect. Once reached, it was circumferentially dissected around this level as well and further laterally superior and inferiorly. Once this was completed, the skin was reapproximated using surgical skin yon followed by reapproximation of the mobilized subcutaneous tissue beneath the dermis using 3-0 Vicryl sutures. The remaining tissue was then allowed to freely extend over the remaining of the fascia, which was released from without any defects. Good hemostasis noted. Appropriate positioning noted without any remaining defects. The right-sided fascia and subcutaneous tissue were elevated and released to allow for mobilization medially as well to allow for less tension. The skin incision was then reapproximated using surgical skin yon. Dressings were then applied. The patient tolerated the procedure well, was extubated, taken to postanesthetic care unit in stable condition. Forrest Mitchell M.D. DR: Pawel JOB#: [id number] CC: CADE
[2019-04-20] VITALS: BP 141/86
[2019-04-20] MEDS: D5 1/2NS w/KCl 20mEq 1,000 ML IV SCH ×2 (02:57→17:42)
[2019-04-20] MEDS: ceFAZolin sod 2 GM in D5W 110 ML IV SCH ×3 (02:57→17:41)
[2019-04-20 04:00] VITALS: BP_SYST 142; BP_DIAS 75; BP_DIAS 90
[2019-04-20] MEDS: Ketorolac 30mg Inj IV PRN ×3 (05:35→17:41)
[2019-04-20] MEDS: PCA shift volume MISC SCH ×2 (07:00→19:17)
[2019-04-20 07:11] LABS: ANION GAP 6 mmol/L (5-15); BLOOD UREA NITROGEN 10 mg/dL (7-18); CALCIUM 8.2 MG/DL (8.5-10.1); CARBON DIOXIDE 31 MMOL/L (21-32); CHLORIDE 103 MMOL/L (98-107); CREATININE 0.9 MG/DL (0.55-1.30); PHOSPHORUS 3.7 MG/DL (2.5-4.9); POTASSIUM 3.9 MMOL/L (3.5-5.1); SODIUM 139 MMOL/L (136-145)
[2019-04-20 07:15] LABS: BASOPHILS % (AUTO) 0.4 % (0.0-2.0); EOSINOPHILS % (AUTO) 0.1 % (0.0-3.0); HEMATOCRIT 42.7 % (42.0-52.0); HEMOGLOBIN 14.8 G/DL (14.2-18.0); LYMPHOCYTES % (AUTO) 16.4 % (20.0-45.0); MEAN CORPUSCULAR VOLUME 86 FL (80-99); MONOCYTES % (AUTO) 11.6 % (1.0-10.0); NEUTROPHILS % (AUTO) 71.5 % (45.0-75.0); PLATELET COUNT 167 K/UL (150-450); RED BLOOD COUNT 4.99 M/UL (4.70-6.10); RED CELL DISTRIBUTION WIDTH 12.3 % (11.6-14.8); WHITE BLOOD COUNT 9.8 K/UL (4.8-10.8)
--- NOTE | 2019-04-20 07:41 | NUR ---
HAND-OFF: Report given to Manoj Diaz RN. Patient in stable condition.
--- NOTE | 2019-04-20 07:49 | NUR ---
NURSE NOTES: Received report from ALFREDO Perez. Rounding done with outgoing nurse. Pt a/o x 4, in bed. No respiratory distress noted. C/O abdominal pain as 11/11. Pt is using STUDENT [employer] COORDINATOR. Abdominal surgical site dressing is C/D/I. D51/2NS + KCl 20meq @100ml/hr. Bed in lowest position, call light within reach. Will continue to monitor.
--- NOTE | 2019-04-20 07:53 | 48 Hour Post Anesthesia Eval ---
Post Anesthesia Evaluation Procedure: colostomy takedown Date of Evaluation: Apr 20, 2019 Blood Pressure Systolic: 142 0: 75 Pulse Rate: 87 Respiratory Rate: 20 Temperature (Fahrenheit): 98.1 O2 Sat by Pulse Oximetry: 98 Airway: patent Nausea: No Vomiting: No Pain Intensity: 4 Hydration Status: adequate Cardiopulmonary Status: at baseline Mental Status/LOC: patient returned to baseline Post-Anesthesia Complications: 0 Follow-up care needed: N/A - further care as per primary team Azalia Guzman MD Apr 20, 2019 07:53
[2019-04-20 08:00] VITALS: BP 107/73
[2019-04-20] MEDS: Pantoprazole Inj IVP SCH (09:37)
[2019-04-20] MEDS: Heparin 5000 units/ml inj SUBQ SCH ×2 (09:39→21:21)
[2019-04-20 12:00] VITALS: BP 132/77
--- NOTE | 2019-04-20 12:23 | NUR ---
NURSE NOTES: Pt's Mg 1.[address] Mitchell ordered magnesium sulfate 2gm IVPB.
--- NOTE | 2019-04-20 13:08 | NUR ---
*-* INSURANCE *-* BLUE CROSS NCM:JUAN (COVERING CM FOR 04/20 IS GENEVIEVE) P: [phone] JUAN P: [phone] GENEVIEVE F: [phone] REF# [id number]
--- NOTE | 2019-04-20 13:46 | NUR ---
P.T NOTE: P.T EVALUATION COMPLETED AND TREATMENT INITIATED. PLEASE REFER TO P.T EVALUATION FOR CURRENT FUNCTIONAL STATUS.
--- NOTE | 2019-04-20 14:30 | Surgery Progress Note ---
Surgery Progress Note Subjective Procedure Performed 1. laparoscopic converted to open colostomy takedown with primary anastomosis 2. extensive open lysis of adhesions 3. open appendectomy 4. omentectomy 5. partial colectomy 6. repair of small bowel enterotomy 7. mobilization of splenic flexure 8. adjacent tissue transfer with skin and subcutaneous flap for closure of prior colostomy defect primarily 9. modifier 22 very difficult procedure Symptoms: improved Additional Comments Patient seen and examined bedside. Recovery. Comfortable. No nausea or fever chills. Labs okay. States he feels relatively much better than anticipated. Objective Last 24 Hour Vital Signs Date Time Temp Pulse Resp B/P (MAP) Pulse Ox O2 Delivery O2 Flow Rate FiO2 04/20/19 12:00 97.8 85 20 132/77 (95) 95 04/20/19 12:00 85 20 95 04/20/19 09:00 Nasal Cannula 2.0 04/20/19 08:00 81 20 98 04/20/19 08:00 99.6 81 20 107/73 (84) 98 04/20/19 07:53 87 20 98 04/20/19 04:00 98.1 87 20 142/75 (97) 98 04/20/19 04:00 87 20 98 04/20/19 00:00 99.7 94 15 141/86 (104) 98 04/20/19 00:00 94 15 98 04/19/19 21:00 Nasal Cannula 2.0 04/19/19 20:30 97 Nasal Cannula 2.0 28 04/19/19 20:00 98.0 85 19 136/88 (104) 99 04/19/19 20:00 85 19 99 04/19/19 17:30 98.0 74 18 144/95 (111) 100 04/19/19 16:30 98.4 77 18 142/96 (111) 99 04/19/19 16:00 97.0 70 18 146/96 (113) 99 04/19/19 15:48 20 04/19/19 15:33 20 04/19/19 15:30 98.0 80 20 151/95 99 Nasal Cannula 3 04/19/19 15:21 86 20 156/97 99 Nasal Cannula 3 04/19/19 15:18 20 04/19/19 15:14 98.0 04/19/19 15:13 98.0 04/19/19 15:00 88 20 159/96 99 Nasal Cannula 3 04/19/19 14:43 91 20 164/100 99 Nasal Cannula 3 04/19/19 14:34 88 20 148/100 100 Nasal Cannula 3 I&O Intake and Output 04/19/19 04/20/19 19:00 07:00 Intake Total 2800 ml 1000 ml Output Total 2000 ml 700 ml Balance 800 ml 300 ml Intake IV Total 2800 ml 1000 ml Output Urine Total 1900 ml 700 ml Estimated Blood Loss 100 ml # Voids 1 Dressing: saturated Wound: clean Drains: none Cardiovascular: RSR Respiratory: clear Abdomen: soft, flat, non-tender, non-distended, decreased bowel sounds Extremities: no edema, no tenderness, no cyanosis Laboratory Tests Test 04/20/19 05:40 White Blood Count 9.8 K/UL (4.8-10.8) # Red Blood Count 4.99 M/UL (4.70-6.10) Hemoglobin 14.8 G/DL (14.2-18.0) Hematocrit 42.7 % (42.0-52.0) Mean Corpuscular Volume 86 FL (80-99) Mean Corpuscular Hemoglobin 29.7 PG (27.0-31.0) Mean Corpuscular Hemoglobin Concent 34.7 G/DL (32.0-36.0) Red Cell Distribution Width 12.3 % (11.6-14.8) Platelet Count 167 K/UL (150-450) Mean Platelet Volume 6.5 FL (6.5-10.1) Neutrophils (%) (Auto) 71.5 % (45.0-75.0) Lymphocytes (%) (Auto) 16.4 % (20.0-45.0) L Monocytes (%) (Auto) 11.6 % (1.0-10.0) H Eosinophils (%) (Auto) 0.1 % (0.0-3.0) Basophils (%) (Auto) 0.4 % (0.0-2.0) Sodium Level 139 MMOL/L (136-145) Potassium Level 3.9 MMOL/L (3.5-5.1) Chloride Level 103 MMOL/L (98-107) Carbon Dioxide Level 31 MMOL/L (21-32) Anion Gap 6 mmol/L (5-15) Blood Urea Nitrogen 10 mg/dL (7-18) Creatinine 0.9 MG/DL (0.55-1.30) Estimat Glomerular Filtration Rate > 60 mL/min (>60) Glucose Level 109 MG/DL (74-106) H Calcium Level 8.2 MG/DL (8.5-10.1) L Phosphorus Level 3.7 MG/DL (2.5-4.9) Magnesium Level 1.5 MG/DL (1.8-2.4) L Assessment Post-op Diagnosis hx of colostomy extensive intraabdominal adhesions appendix incarcerated with small bowel into pelvis large abdominal wall defect Plan Problems: (1) History of colostomy (2) Colostomy status Assessment & Plan: Status post colostomy takedown with above very complex surgery requiring extensive intraoperative care Satisfactory conclusion resolved. Patient doing very well postoperatively. Labs reviewed Vitals reviewed Exam as above dressings changed Ambulatory Keep Villatoro in continue IV antibiotics AM labs N.p.o. (3) Perforated diverticulum of large intestine Forrest Mitchell Apr 20, 2019 14:30
[2019-04-20 16:00] VITALS: BP 126/76
--- NOTE | 2019-04-20 18:50 | General Progress Note ---
Assessment/Plan Assessment/Plan: Assessment - h/o diverticulosis/diverticulitis --> colostomy - POD #1 s/p open colostomy takedown - s/p open appy - s/p omentectomy, TANG, partial colectomy, enterotomy repain - low Mg - replaced Assessment - IV flagyl / Ancef per surgery - IVF - follow labs and exam - PPI - replace lytes - diet per surgery - OOB / DVT prophylaxis Subjective Allergies: Coded Allergies: No Known Allergies (Unverified , 05/18/13) Objective Last 24 Hour Vital Signs Date Time Temp Pulse Resp B/P (MAP) Pulse Ox O2 Delivery O2 Flow Rate FiO2 04/20/19 16:00 97.9 82 20 126/76 (93) 96 04/20/19 16:00 82 20 96 04/20/19 12:00 97.8 85 20 132/77 (95) 95 04/20/19 12:00 85 20 95 04/20/19 09:00 Nasal Cannula 2.0 04/20/19 08:23 98 Nasal Cannula 2.0 28 04/20/19 08:00 81 20 98 04/20/19 08:00 99.6 81 20 107/73 (84) 98 04/20/19 07:53 87 20 98 04/20/19 04:00 98.1 87 20 142/75 (97) 98 04/20/19 04:00 87 20 98 04/20/19 00:00 99.7 94 15 141/86 (104) 98 04/20/19 00:00 94 15 98 04/19/19 21:00 Nasal Cannula 2.0 04/19/19 20:30 97 Nasal Cannula 2.0 28 04/19/19 20:00 98.0 85 19 136/88 (104) 99 04/19/19 20:00 85 19 99 Intake and Output 04/19/19 04/20/19 19:00 07:00 Intake Total 2800 ml 1000 ml Output Total 2000 ml 700 ml Balance 800 ml 300 ml Intake IV Total 2800 ml 1000 ml Output Urine Total 1900 ml 700 ml Estimated Blood Loss 100 ml # Voids 1 Laboratory Tests 04/20/19 05:40: White Blood Count 9.8#, Red Blood Count 4.99, Hemoglobin 14.8, Hematocrit 42.7, Mean Corpuscular Volume 86, Mean Corpuscular Hemoglobin 29.7, Mean Corpuscular Hemoglobin Concent 34.7, Red Cell Distribution Width 12.3, Platelet Count 167, Mean Platelet Volume 6.5, Neutrophils (%) (Auto) 71.5, Lymphocytes (%) (Auto) 16.4L, Monocytes (%) (Auto) 11.6H, Eosinophils (%) (Auto) 0.1, Basophils (%) ( Auto) 0.4, Sodium Level 139, Potassium Level 3.9, Chloride Level 103, Carbon Dioxide Level 31, Anion Gap 6, Blood Urea Nitrogen 10, Creatinine 0.9, Estimat Glomerular Filtration Rate > 60, Glucose Level 109H, Calcium Level 8.2L, Phosphorus Level 3.7, Magnesium Level 1.5L Height (Feet): 5 Height (Inches): 11.00 Weight (Pounds): 200 Augustin Bangura MD Apr 20, 2019 18:50
--- NOTE | 2019-04-20 19:16 | NUR ---
HAND-OFF: Report given to ALFREDO Perez. Pt is stable.
--- NOTE | 2019-04-20 19:36 | NUR ---
NURSE NOTES: Received report from Manoj Diaz RN. Patient is stable. Villatoro draining dark yellow urine to gravity bag. MAINTAINABILITY ENGINEER pump at bedside with remote in hand. Fluids running to Right hand IV asymptomatic and intact. Abdominal dressing c/d/i. No c/o SOB, IS at bedside. RN instructed patient to use. Patient expectorating thick, white mucous. SCDs on. Bed in low and locked position. Will continue plan of care.
[2019-04-20 20:00] VITALS: BP 135/90
[2019-04-21] VITALS: BP 132/79
[2019-04-21] MEDS: D5 1/2NS w/KCl 20mEq 1,000 ML IV SCH ×3 (00:03→15:45)
[2019-04-21] MEDS: Ketorolac 30mg Inj IV PRN ×3 (00:04→18:16)
[2019-04-21] MEDS: ceFAZolin sod 2 GM in D5W 110 ML IV SCH ×3 (01:34→18:15)
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
[2019-04-21 04:00] VITALS: BP 127/82
[2019-04-21 05:56] LABS: BASOPHILS % (AUTO) 0.7 % (0.0-2.0); EOSINOPHILS % (AUTO) 0.4 % (0.0-3.0); HEMATOCRIT 35.9 % (42.0-52.0); HEMOGLOBIN 12.4 G/DL (14.2-18.0); LYMPHOCYTES % (AUTO) 14.3 % (20.0-45.0); MEAN CORPUSCULAR VOLUME 87 FL (80-99); MONOCYTES % (AUTO) 9.9 % (1.0-10.0); NEUTROPHILS % (AUTO) 74.7 % (45.0-75.0); PLATELET COUNT 148 K/UL (150-450); RED BLOOD COUNT 4.11 M/UL (4.70-6.10); RED CELL DISTRIBUTION WIDTH 12.4 % (11.6-14.8); WHITE BLOOD COUNT 8.6 K/UL (4.8-10.8)
[2019-04-21 06:07] LABS: ALANINE AMINOTRANSFERASE 20 U/L (12-78); ALBUMIN 2.6 G/DL (3.4-5.0); ALBUMIN/GLOBULIN RATIO 0.7 (1.0-2.7); ALKALINE PHOSPHATASE 45 U/L (46-116); ANION GAP 2 mmol/L (5-15); ASPARTATE AMINO TRANSFERASE 15 U/L (15-37); BILIRUBIN,TOTAL 0.7 MG/DL (0.2-1.0); BLOOD UREA NITROGEN 10 mg/dL (7-18); CALCIUM 8.3 MG/DL (8.5-10.1); CARBON DIOXIDE 32 MMOL/L (21-32); CHLORIDE 106 MMOL/L (98-107); POTASSIUM 4.3 MMOL/L (3.5-5.1); SODIUM 140 MMOL/L (136-145)
[2019-04-21] MEDS: PCA shift volume MISC SCH ×2 (07:20→19:05)
--- NOTE | 2019-04-21 07:21 | NUR ---
HAND-OFF: Report given to Manoj Diaz RN. Patient is stable.
--- NOTE | 2019-04-21 07:25 | NUR ---
NURSE NOTES: Received report from ALFREDO Perez. Rounding done with outgoing nurse. Pt a/o x 4, in bed. c/o abdominal pain as 9/10 and pain medicine will be given as MD ordered. SURVEILLANCE OPERATOR is on. Lt FA IV access is patent. Villatoro catheter is patent. Bed in lowest position, call light within reach. Will continue to monitor.
[2019-04-21 08:00] VITALS: BP 125/84
[2019-04-21] MEDS: Pantoprazole Inj IVP SCH (09:18)
--- NOTE | 2019-04-21 09:29 | NUR ---
NURSE NOTES: Plt was [address] Mitchell if it is okay to give heparin. Dr. Mitchell ordered okay to give and renew GANG SUPERVISOR. Will put it in.
[2019-04-21] MEDS: Heparin 5000 units/ml inj SUBQ SCH ×2 (10:11→21:00)
[2019-04-21] MEDS ORDERED: Naloxone 0.4mg/ml Inj IVP PRN (11:41)
[2019-04-21] MEDS ORDERED: Rate Change PCA 1 Each MISC PRN (11:45)
[2019-04-21 12:00] VITALS: BP 135/87
--- NOTE | 2019-04-21 14:14 | NUR ---
NURSE NOTES: Dr. Mitchell ordered d/c main. Will put it in.
[2019-04-21] MEDS ORDERED: PCA HYDROmorphone 1mg/ml 30 ML IV PRN (15:10)
--- NOTE | 2019-04-21 15:19 | NUR ---
CASE MANAGEMENT:REVIEW 04/19/19 SI: EXTENSIVE INTRA-ABDOMINAL ADHESIONS 96.9 61 20 123/77 97% ON RA WBC-3.7 H/H-13.7/39.9 IS: TO SURGERY FOR: OPEN COLOSTOMY TAKE DOWN EXTENSIVE LYSIS OF ADHESIONS OPEN OMENTECTOMY PARTIAL DISTAL COLECTOMY REPAIR OF SMALL BOWEL ENTEROTOMY : TO MED/SURG UNIT POST OP
--- NOTE | 2019-04-21 15:25 | NUR ---
CASE MANAGEMENT:REVIEW 04/21/ SI: POD #2 99.0 108 16 132/79 98% ON RA H/H-12.4/35.9 PLT-148 MAG-1.7 IS: SHINGLE SHEARING MACHINE OPERATOR DILAUDID IV PROTONIX QD IV FLAGYL Q8HRS IV ANCEF Q8HRS IVF@100/HR : MED/SURG STATUS PLAN: NPO
[2019-04-21 16:00] VITALS: BP 130/70
[2019-04-21] MEDS ORDERED: D5 1/2NS 1000ml IV ONE (18:00)
[2019-04-21] MEDS ORDERED: Tubing IV Secondary IV ONE (18:01)
--- NOTE | 2019-04-21 18:32 | Surgery Progress Note ---
Surgery Progress Note Subjective Procedure Performed 1. laparoscopic converted to open colostomy takedown with primary anastomosis 2. extensive open lysis of adhesions 3. open appendectomy 4. omentectomy 5. partial colectomy 6. repair of small bowel enterotomy 7. mobilization of splenic flexure 8. adjacent tissue transfer with skin and subcutaneous flap for closure of prior colostomy defect primarily 9. modifier 22 very difficult procedure Symptoms: improved, voiding well, pain decreased Objective Last 24 Hour Vital Signs Date Time Temp Pulse Resp B/P (MAP) Pulse Ox O2 Delivery O2 Flow Rate FiO2 04/21/19 16:00 97.2 80 20 130/70 (90) 97 04/21/19 16:00 80 20 97 04/21/19 13:46 97 Room Air 21 04/21/19 12:00 85 18 96 04/21/19 12:00 97.5 85 18 135/87 (103) 96 04/21/19 09:00 Nasal Cannula 2.0 04/21/19 08:00 98.3 90 20 125/84 (98) 93 04/21/19 08:00 90 20 93 04/21/19 04:00 97 19 95 04/21/19 04:00 99.0 97 19 127/82 (97) 95 04/21/19 00:00 108 16 98 04/21/19 00:00 99.0 108 16 132/79 (96) 98 04/20/19 21:00 Nasal Cannula 2.0 04/20/19 20:00 89 18 98 04/20/19 20:00 99.5 89 18 135/90 (105) 98 04/20/19 19:10 98 Nasal Cannula 2.0 28 I&O Intake and Output 04/20/19 04/21/19 19:00 07:00 Intake Total 1120 ml 1000 ml Output Total 500 ml 650 ml Balance 620 ml 350 ml Intake IV Total 1120 ml 1000 ml Output Urine Total 500 ml 650 ml Dressing: dry Wound: clean Drains: none Cardiovascular: RSR Respiratory: clear Abdomen: soft, non-tender, non-distended, decreased bowel sounds Extremities: no edema, no tenderness, no cyanosis Laboratory Tests Test 04/21/19 04:35 White Blood Count 8.6 K/UL (4.8-10.8) Red Blood Count 4.11 M/UL (4.70-6.10) L Hemoglobin 12.4 G/DL (14.2-18.0) L Hematocrit 35.9 % (42.0-52.0) L Mean Corpuscular Volume 87 FL (80-99) Mean Corpuscular Hemoglobin 30.1 PG (27.0-31.0) Mean Corpuscular Hemoglobin Concent 34.5 G/DL (32.0-36.0) Red Cell Distribution Width 12.4 % (11.6-14.8) Platelet Count 148 K/UL (150-450) L Mean Platelet Volume 6.7 FL (6.5-10.1) Neutrophils (%) (Auto) 74.7 % (45.0-75.0) Lymphocytes (%) (Auto) 14.3 % (20.0-45.0) L Monocytes (%) (Auto) 9.9 % (1.0-10.0) Eosinophils (%) (Auto) 0.4 % (0.0-3.0) Basophils (%) (Auto) 0.7 % (0.0-2.0) Sodium Level 140 MMOL/L (136-145) Potassium Level 4.3 MMOL/L (3.5-5.1) Chloride Level 106 MMOL/L (98-107) Carbon Dioxide Level 32 MMOL/L (21-32) Anion Gap 2 mmol/L (5-15) L Blood Urea Nitrogen 10 mg/dL (7-18) Creatinine 1.0 MG/DL (0.55-1.30) Estimat Glomerular Filtration Rate > 60 mL/min (>60) Glucose Level 107 MG/DL (74-106) H Calcium Level 8.3 MG/DL (8.5-10.1) L Magnesium Level 1.7 MG/DL (1.8-2.4) L Total Bilirubin 0.7 MG/DL (0.2-1.0) Aspartate Amino Transf (AST/SGOT) 15 U/L (15-37) Alanine Aminotransferase (ALT/SGPT) 20 U/L (12-78) Alkaline Phosphatase 45 U/L (46-116) L Total Protein 6.1 G/DL (6.4-8.2) L Albumin 2.6 G/DL (3.4-5.0) L Globulin 3.5 g/dL Albumin/Globulin Ratio 0.7 (1.0-2.7) L Assessment Post-op Diagnosis hx of colostomy extensive intraabdominal adhesions appendix incarcerated with small bowel into pelvis large abdominal wall defect Plan Problems: (1) History of colostomy (2) Colostomy status Assessment & Plan: Status post colostomy takedown with above very complex surgery requiring extensive intraoperative care Satisfactory conclusion resolved. Patient doing very well postoperatively. Labs reviewed Vitals reviewed Exam as above dressings changed Ambulatory d/c main continue IV antibiotics AM labs N.p.o. (3) Perforated diverticulum of large intestine Forrest Mitchell Apr 21, 2019 18:32
--- NOTE | 2019-04-21 19:09 | NUR ---
HAND-OFF: Report given to ALFREDO Shetty. Pt is stable.
--- NOTE | 2019-04-21 19:30 | NUR ---
NURSE NOTES: Patient in bed, alert and oriented x4, no complaint of severe pain at this time, ambulatory. Dressing is dry and intact on abdomen, no stain. Encouraged to use call light when assistance is needed. Bed in lowest and lock engaged. Will continue to monitor.
[2019-04-21 20:00] VITALS: BP 119/74
--- NOTE | 2019-04-21 23:09 | General Progress Note ---
Assessment/Plan Assessment/Plan: Assessment - h/o diverticulosis/diverticulitis --> colostomy - POD #1 s/p open colostomy takedown - s/p open appy - s/p omentectomy, TANG, partial colectomy, enterotomy repain - low Mg - replaced Assessment - IV flagyl / Ancef per surgery - IVF - follow labs and exam - PPI - replace lytes - diet per surgery - OOB / DVT prophylaxis Subjective Allergies: Coded Allergies: No Known Allergies (Unverified , 05/18/13) Subjective Feels OK decreasing abd pain did walk Objective Last 24 Hour Vital Signs Date Time Temp Pulse Resp B/P (MAP) Pulse Ox O2 Delivery O2 Flow Rate FiO2 04/21/19 21:00 Nasal Cannula 2.0 04/21/19 20:00 98.1 81 19 119/74 (89) 99 04/21/19 20:00 97 Nasal Cannula 1.0 24 04/21/19 16:00 97.2 80 20 130/70 (90) 97 04/21/19 16:00 80 20 97 04/21/19 13:46 97 Room Air 21 04/21/19 12:00 85 18 96 04/21/19 12:00 97.5 85 18 135/87 (103) 96 04/21/19 09:00 Nasal Cannula 2.0 04/21/19 08:00 98.3 90 20 125/84 (98) 93 04/21/19 08:00 90 20 93 04/21/19 04:00 97 19 95 04/21/19 04:00 99.0 97 19 127/82 (97) 95 04/21/19 00:00 108 16 98 04/21/19 00:00 99.0 108 16 132/79 (96) 98 Intake and Output 04/20/19 04/21/19 19:00 07:00 Intake Total 1120 ml 1000 ml Output Total 500 ml 650 ml Balance 620 ml 350 ml Intake IV Total 1120 ml 1000 ml Output Urine Total 500 ml 650 ml Laboratory Tests 04/21/19 04:35: White Blood Count 8.6, Red Blood Count 4.11L, Hemoglobin 12.4L, Hematocrit 35.9L , Mean Corpuscular Volume 87, Mean Corpuscular Hemoglobin 30.1, Mean Corpuscular Hemoglobin Concent 34.5, Red Cell Distribution Width 12.4, Platelet Count 148L, Mean Platelet Volume 6.7, Neutrophils (%) (Auto) 74.7, Lymphocytes ( %) (Auto) 14.3L, Monocytes (%) (Auto) 9.9, Eosinophils (%) (Auto) 0.4, Basophils (%) (Auto) 0.7, Sodium Level 140, Potassium Level 4.3, Chloride Level 106, Carbon Dioxide Level 32, Anion Gap 2L, Blood Urea Nitrogen 10, Creatinine 1.0, Estimat Glomerular Filtration Rate > 60, Glucose Level 107H, Calcium Level 8.3L, Magnesium Level 1.7L, Total Bilirubin 0.7, Aspartate Amino Transf (AST/ SGOT) 15, Alanine Aminotransferase (ALT/SGPT) 20, Alkaline Phosphatase 45L, Total Protein 6.1L, Albumin 2.6L, Globulin 3.5, Albumin/Globulin Ratio 0.7L Height (Feet): 5 Height (Inches): 11.00 Weight (Pounds): 199 Objective WDWN AA man NCAT supple CTA RR abd soft ND, (+) Dressing no edema Augustin Bangura MD Apr 21, 2019 23:08
[2019-04-22] VITALS (7 sets, daily range): BP systolic 116–131; BP diastolic 70–83
[2019-04-22] MEDS: Ketorolac 30mg Inj IV PRN ×3 (00:10→17:15)
[2019-04-22] MEDS: ceFAZolin sod 2 GM in D5W 110 ML IV SCH ×3 (02:31→17:16)
[2019-04-22] MEDS: D5 1/2NS w/KCl 20mEq 1,000 ML IV SCH ×2 (04:49→17:16)
[2019-04-22 05:26] LABS: BASOPHILS % (AUTO) 0.8 % (0.0-2.0); EOSINOPHILS % (AUTO) 2.1 % (0.0-3.0); HEMATOCRIT 32.8 % (42.0-52.0); HEMOGLOBIN 11.1 G/DL (14.2-18.0); LYMPHOCYTES % (AUTO) 17.3 % (20.0-45.0); MEAN CORPUSCULAR VOLUME 88 FL (80-99); MONOCYTES % (AUTO) 13.9 % (1.0-10.0); NEUTROPHILS % (AUTO) 65.9 % (45.0-75.0); PLATELET COUNT 131 K/UL (150-450); RED BLOOD COUNT 3.73 M/UL (4.70-6.10); RED CELL DISTRIBUTION WIDTH 12.2 % (11.6-14.8); WHITE BLOOD COUNT 5.5 K/UL (4.8-10.8)
[2019-04-22 06:13] LABS: ALANINE AMINOTRANSFERASE 18 U/L (12-78); ALBUMIN 2.5 G/DL (3.4-5.0); ALBUMIN/GLOBULIN RATIO 0.7 (1.0-2.7); ALKALINE PHOSPHATASE 42 U/L (46-116); ANION GAP 8 mmol/L (5-15); ASPARTATE AMINO TRANSFERASE 16 U/L (15-37); BILIRUBIN,TOTAL 0.6 MG/DL (0.2-1.0); BLOOD UREA NITROGEN 10 mg/dL (7-18); CALCIUM 8.3 MG/DL (8.5-10.1); CARBON DIOXIDE 27 MMOL/L (21-32); CHLORIDE 105 MMOL/L (98-107); CREATININE 0.9 MG/DL (0.55-1.30); POTASSIUM 4.1 MMOL/L (3.5-5.1); SODIUM 140 MMOL/L (136-145)
[2019-04-22] MEDS: PCA shift volume MISC SCH ×2 (07:00→19:21)
--- NOTE | 2019-04-22 07:20 | NUR ---
NURSE NOTES: Report received from Migel RN, rounds made. Patient resting in semi-fowlers position, in bed. No distress, O2 sats 99% on RA, pain 6/10 to abdominal surgical site, tolerating TACTICAL DECEPTION PLANS OFFICER (Dilaudid). No NV at this time, reinforced NPO status. IV (D5 1/2 +20 KCL at 100 ml/hr) infusing to LFA, site asymptomatic. Abdominal surgical dressing CDI (ABD with silk tape). Bilateral SCDs off, skin warm, no NT, pulses palpable. Encouraged IS use with pillow as abdominal splint. Call light in reach, bed in lowest position, will continue to monitor.
--- NOTE | 2019-04-22 07:28 | NUR ---
HAND-OFF: Report given to ALFREDO Howard.
--- NOTE | 2019-04-22 08:01 | NUR ---
NURSE NOTES: Dr. Mitchell notified of platelets 131, order received for okay to give Heparin SQ this AM, see orders and updated eMAR.
[2019-04-22] MEDS: Heparin 5000 units/ml inj SUBQ SCH ×2 (09:23→21:00)
[2019-04-22] MEDS: Pantoprazole Inj IVP SCH (09:24)
--- NOTE | 2019-04-22 14:45 | NUR ---
NURSE NOTES: Abdominal surgical site remains CDI, scant bloody drainage noted to left lower yon after ambulating, rechecked no further drainage noted. Stapes remain intact, no redness/swelling. Will continue to monitor.
--- NOTE | 2019-04-22 14:54 | Surgery Progress Note ---
Surgery Progress Note Subjective Procedure Performed 1. laparoscopic converted to open colostomy takedown with primary anastomosis 2. extensive open lysis of adhesions 3. open appendectomy 4. omentectomy 5. partial colectomy 6. repair of small bowel enterotomy 7. mobilization of splenic flexure 8. adjacent tissue transfer with skin and subcutaneous flap for closure of prior colostomy defect primarily 9. modifier 22 very difficult procedure Symptoms: improved, pain decreased Additional Comments no flatus or BM voiding well since main out pain okay dressings removed Objective Last 24 Hour Vital Signs Date Time Temp Pulse Resp B/P (MAP) Pulse Ox O2 Delivery O2 Flow Rate FiO2 04/22/19 12:00 66 18 100 04/22/19 12:00 98.8 71 16 129/81 (97) 99 04/22/19 09:07 98 Nasal Cannula 2.0 28 04/22/19 09:00 Nasal Cannula 2.0 04/22/19 08:03 80 16 98 04/22/19 08:00 98.3 80 16 131/83 (99) 98 04/22/19 04:00 97.6 72 18 116/76 (89) 98 04/22/19 04:00 72 18 98 04/22/19 00:00 77 19 99 04/22/19 00:00 98.2 77 19 122/70 (87) 99 04/21/19 21:00 Nasal Cannula 2.0 04/21/19 20:00 81 19 99 04/21/19 20:00 98.1 81 19 119/74 (89) 99 04/21/19 20:00 97 Nasal Cannula 1.0 24 04/21/19 16:00 97.2 80 20 130/70 (90) 97 04/21/19 16:00 80 20 97 I&O Intake and Output 04/21/19 04/22/19 19:00 07:00 Intake Total 720 ml Output Total 600 ml Balance 120 ml Intake IV Total 720 ml Output Urine Total 600 ml # Voids 1 1 Dressing: dry Wound: clean Drains: none Cardiovascular: RSR Respiratory: clear Abdomen: soft, tenderness, non-distended, decreased bowel sounds Extremities: no edema, no tenderness, no cyanosis Laboratory Tests Test 04/22/19 04:45 White Blood Count 5.5 K/UL (4.8-10.8) Red Blood Count 3.73 M/UL (4.70-6.10) L Hemoglobin 11.1 G/DL (14.2-18.0) L Hematocrit 32.8 % (42.0-52.0) L Mean Corpuscular Volume 88 FL (80-99) Mean Corpuscular Hemoglobin 29.9 PG (27.0-31.0) Mean Corpuscular Hemoglobin Concent 33.9 G/DL (32.0-36.0) Red Cell Distribution Width 12.2 % (11.6-14.8) Platelet Count 131 K/UL (150-450) L Mean Platelet Volume 6.9 FL (6.5-10.1) Neutrophils (%) (Auto) 65.9 % (45.0-75.0) Lymphocytes (%) (Auto) 17.3 % (20.0-45.0) L Monocytes (%) (Auto) 13.9 % (1.0-10.0) H Eosinophils (%) (Auto) 2.1 % (0.0-3.0) Basophils (%) (Auto) 0.8 % (0.0-2.0) Sodium Level 140 MMOL/L (136-145) Potassium Level 4.1 MMOL/L (3.5-5.1) Chloride Level 105 MMOL/L (98-107) Carbon Dioxide Level 27 MMOL/L (21-32) Anion Gap 8 mmol/L (5-15) Blood Urea Nitrogen 10 mg/dL (7-18) Creatinine 0.9 MG/DL (0.55-1.30) Estimat Glomerular Filtration Rate > 60 mL/min (>60) Glucose Level 95 MG/DL (74-106) Calcium Level 8.3 MG/DL (8.5-10.1) L Total Bilirubin 0.6 MG/DL (0.2-1.0) Aspartate Amino Transf (AST/SGOT) 16 U/L (15-37) Alanine Aminotransferase (ALT/SGPT) 18 U/L (12-78) Alkaline Phosphatase 42 U/L (46-116) L Total Protein 6.3 G/DL (6.4-8.2) L Albumin 2.5 G/DL (3.4-5.0) L Globulin 3.8 g/dL Albumin/Globulin Ratio 0.7 (1.0-2.7) L Assessment Post-op Diagnosis hx of colostomy extensive intraabdominal adhesions appendix incarcerated with small bowel into pelvis large abdominal wall defect Plan Problems: (1) History of colostomy (2) Colostomy status Assessment & Plan: Status post colostomy takedown with above very complex surgery requiring extensive intraoperative care Satisfactory conclusion resolved. Patient doing very well postoperatively. Labs reviewed Vitals reviewed Exam as above wounds c/d/i incision open to air Ambulatory continue IV antibiotics AM labs N.p.o. await return of bowel function (3) Perforated diverticulum of large intestine Forrest Mitchell Apr 22, 2019 14:54
--- NOTE | 2019-04-22 16:53 | NUR ---
CASE MANAGEMENT:REVIEW 04/22/19 SI: POD #3 S/P OPEN COLOSTOMY TAKE DOWN.EXTENSIVE LYSIS OF ADHESIONS OPEN OMENTECTOMY. PARTIAL DISTAL COLECTOMY REPAIR OF SMALL BOWEL ENTEROTOMY 98.8 71 16 129/81 99% ON 2L/NC H/H-11.1/32.8 PLT-131 IS: JEWELRY MANAGER DILAUDID IV PROTONIX QD IV FLAGYL Q8HRS IV ANCEF Q8HRS IVF@100/HR : MED/SURG STATUS PLAN: NPO
--- NOTE | 2019-04-22 17:00 | NUR ---
NURSE NOTES: Patient experiencing flatulence, Dr. Mitchell updated, no further orders at this time.
--- NOTE | 2019-04-22 19:10 | NUR ---
HAND-OFF: Report given to Krista FUENTES, rounds made.
--- NOTE | 2019-04-22 19:33 | NUR ---
NURSE NOTES: Received report from ALFREDO Howard. Patient sitting up in bed, no distress noted. IV infusing well in L wrist. Bed in low position, locked, side rails up x2, call light within reach. Will continue to monitor.
--- NOTE | 2019-04-22 20:00 | NUR ---
NURSE NOTES: Patient alert, oriented x4. Using CLINICAL EDUCATOR as needed, CLINICAL EDUCATOR button within reach. No distress noted, stated relief from nausea. Able to ambulate without difficulty to bathroom, no dizziness. Abdominal incision with yon, BABAK, intact. Encouraged and reviewed use of incentive spirometer. Encouraged to call as needed for assistance. Patient verbalizes understanding. Will continue to monitor.
--- NOTE | 2019-04-22 23:13 | General Progress Note ---
Assessment/Plan Assessment/Plan: Assessment - h/o diverticulosis/diverticulitis --> colostomy - s/p open colostomy takedown - s/p open appy - s/p omentectomy, TANG, partial colectomy, enterotomy repain - low Mg - replaced Assessment - IV flagyl / Ancef per surgery - IVF - follow labs and exam - PPI - replace lytes - diet per surgery - OOB / DVT prophylaxis Subjective Allergies: Coded Allergies: No Known Allergies (Unverified , 05/18/13) Subjective Feels OK decreasing abd pain no flatus main our Objective Last 24 Hour Vital Signs Date Time Temp Pulse Resp B/P (MAP) Pulse Ox O2 Delivery O2 Flow Rate FiO2 04/22/19 21:00 Nasal Cannula 2.0 04/22/19 20:54 100 Nasal Cannula 2.0 28 04/22/19 20:00 98.9 72 18 129/73 (91) 99 04/22/19 20:00 72 18 99 04/22/19 16:45 Nasal Cannula 2.0 04/22/19 16:00 70 18 100 04/22/19 16:00 98.1 70 17 128/81 (97) 99 04/22/19 12:00 66 18 100 04/22/19 12:00 98.8 71 16 129/81 (97) 99 04/22/19 09:07 98 Nasal Cannula 2.0 28 04/22/19 09:00 Nasal Cannula 2.0 04/22/19 08:03 80 16 98 04/22/19 08:00 98.3 80 16 131/83 (99) 98 04/22/19 04:00 97.6 72 18 116/76 (89) 98 04/22/19 04:00 72 18 98 04/22/19 00:00 77 19 99 04/22/19 00:00 98.2 77 19 122/70 (87) 99 Intake and Output 04/21/19 04/22/19 19:00 07:00 Intake Total 720 ml 100 ml Output Total 600 ml Balance 120 ml 100 ml Intake IV Total 720 ml 100 ml Output Urine Total 600 ml # Voids 1 1 Laboratory Tests 04/22/19 04:45: White Blood Count 5.5, Red Blood Count 3.73L, Hemoglobin 11.1L, Hematocrit 32.8L , Mean Corpuscular Volume 88, Mean Corpuscular Hemoglobin 29.9, Mean Corpuscular Hemoglobin Concent 33.9, Red Cell Distribution Width 12.2, Platelet Count 131L, Mean Platelet Volume 6.9, Neutrophils (%) (Auto) 65.9, Lymphocytes ( %) (Auto) 17.3L, Monocytes (%) (Auto) 13.9H, Eosinophils (%) (Auto) 2.1, Basophils (%) (Auto) 0.8, Sodium Level 140, Potassium Level 4.1, Chloride Level 105, Carbon Dioxide Level 27, Anion Gap 8, Blood Urea Nitrogen 10, Creatinine 0.9, Estimat Glomerular Filtration Rate > 60, Glucose Level 95, Calcium Level 8.3L, Total Bilirubin 0.6, Aspartate Amino Transf (AST/SGOT) 16, Alanine Aminotransferase (ALT/SGPT) 18, Alkaline Phosphatase 42L, Total Protein 6.3L, Albumin 2.5L, Globulin 3.8, Albumin/Globulin Ratio 0.7L Height (Feet): 5 Height (Inches): 11.00 Weight (Pounds): 199 Objective WDWN AA man NCAT supple CTA RR abd soft ND, (+) Dressing no edema Augustin Bangura MD Apr 22, 2019 23:13
[2019-04-23] VITALS (7 sets, daily range): BP systolic 129–144; BP diastolic 77–87
[2019-04-23] MEDS: D5 1/2NS w/KCl 20mEq 1,000 ML IV SCH ×3 (01:35→13:37)
[2019-04-23] MEDS: ceFAZolin sod 2 GM in D5W 110 ML IV SCH ×3 (01:35→18:10)
[2019-04-23 05:59] LABS: BASOPHILS % (AUTO) 0.8 % (0.0-2.0); EOSINOPHILS % (AUTO) 3.1 % (0.0-3.0); HEMATOCRIT 32.6 % (42.0-52.0); HEMOGLOBIN 11.2 G/DL (14.2-18.0); LYMPHOCYTES % (AUTO) 25.8 % (20.0-45.0); MEAN CORPUSCULAR VOLUME 87 FL (80-99); MONOCYTES % (AUTO) 13.3 % (1.0-10.0); PLATELET COUNT 138 K/UL (150-450); RED BLOOD COUNT 3.74 M/UL (4.70-6.10); RED CELL DISTRIBUTION WIDTH 12.1 % (11.6-14.8); WHITE BLOOD COUNT 4.9 K/UL (4.8-10.8)
[2019-04-23 06:28] LABS: ALANINE AMINOTRANSFERASE 26 U/L (12-78); ALBUMIN 2.6 G/DL (3.4-5.0); ALBUMIN/GLOBULIN RATIO 0.7 (1.0-2.7); ALKALINE PHOSPHATASE 45 U/L (46-116); ANION GAP 6 mmol/L (5-15); ASPARTATE AMINO TRANSFERASE 24 U/L (15-37); BILIRUBIN,TOTAL 0.6 MG/DL (0.2-1.0); BLOOD UREA NITROGEN 11 mg/dL (7-18); CALCIUM 8.7 MG/DL (8.5-10.1); CARBON DIOXIDE 28 MMOL/L (21-32); CHLORIDE 105 MMOL/L (98-107); CREATININE 0.8 MG/DL (0.55-1.30); POTASSIUM 4.4 MMOL/L (3.5-5.1); SODIUM 139 MMOL/L (136-145)
--- NOTE | 2019-04-23 07:02 | NUR ---
NURSE NOTES: Report received from Krista FUENTES. Patient sleeping in semi-fowlers position in bed, arousable to name. IVF (D5 1/2 +20 KCL) infusing at 100 ml/hr with TECHNOLOGY DIRECTOR (Dilaudid) to left wrist without difficulty, site asymptomatic. No distress on RA. Remains NPO, no NV at this time. Call light in reach, bed in lowest position, will continue to monitor.
[2019-04-23] MEDS: PCA shift volume MISC SCH (07:12)
--- NOTE | 2019-04-23 07:14 | NUR ---
HAND-OFF: Report given to ALFREDO Howard.
--- NOTE | 2019-04-23 08:58 | General Progress Note ---
Assessment/Plan Assessment/Plan: Assessment - h/o diverticulosis/diverticulitis --> colostomy - s/p open colostomy takedown - s/p open appy - s/p omentectomy, TANG, partial colectomy, enterotomy repain - low Mg - replaced Assessment - IV flagyl / Ancef per surgery - IVF - follow labs and exam - PPI - replace lytes - diet per surgery - OOB / DVT prophylaxis Subjective Allergies: Coded Allergies: No Known Allergies (Unverified , 05/18/13) Subjective Feels OK decreasing abd pain (+) flatus Hungry Objective Last 24 Hour Vital Signs Date Time Temp Pulse Resp B/P (MAP) Pulse Ox O2 Delivery O2 Flow Rate FiO2 04/23/19 04:05 98.4 67 16 134/87 (103) 98 04/23/19 04:00 67 16 98 04/23/19 00:00 98.5 76 16 129/79 (96) 98 04/23/19 00:00 76 16 98 04/22/19 21:00 Nasal Cannula 2.0 04/22/19 20:54 100 Nasal Cannula 2.0 28 04/22/19 20:00 98.9 72 18 129/73 (91) 99 04/22/19 20:00 72 18 99 04/22/19 16:45 Nasal Cannula 2.0 04/22/19 16:00 70 18 100 04/22/19 16:00 98.1 70 17 128/81 (97) 99 04/22/19 12:00 66 18 100 04/22/19 12:00 98.8 71 16 129/81 (97) 99 04/22/19 09:07 98 Nasal Cannula 2.0 28 04/22/19 09:00 Nasal Cannula 2.0 Intake and Output 04/22/19 04/23/19 19:00 07:00 Intake Total 1000 ml 1100 ml Balance 1000 ml 1100 ml Intake IV Total 1000 ml 1100 ml # Voids 3 2 Laboratory Tests 04/23/19 05:30: White Blood Count 4.9, Red Blood Count 3.74L, Hemoglobin 11.2L, Hematocrit 32.6L , Mean Corpuscular Volume 87, Mean Corpuscular Hemoglobin 30.0, Mean Corpuscular Hemoglobin Concent 34.4, Red Cell Distribution Width 12.1, Platelet Count 138L, Mean Platelet Volume 6.4L, Neutrophils (%) (Auto) 57.0, Lymphocytes (%) (Auto) 25.8, Monocytes (%) (Auto) 13.3H, Eosinophils (%) (Auto) 3.1H, Basophils (%) (Auto) 0.8, Sodium Level 139, Potassium Level 4.4, Chloride Level 105, Carbon Dioxide Level 28, Anion Gap 6, Blood Urea Nitrogen 11, Creatinine 0.8, Estimat Glomerular Filtration Rate > 60, Glucose Level 100, Calcium Level 8.7, Total Bilirubin 0.6, Aspartate Amino Transf (AST/SGOT) 24, Alanine Aminotransferase (ALT/SGPT) 26, Alkaline Phosphatase 45L, Total Protein 6.5, Albumin 2.6L, Globulin 3.9, Albumin/Globulin Ratio 0.7L Height (Feet): 5 Height (Inches): 11.00 Weight (Pounds): 199 Objective WDWN AA man NCAT supple CTA RR abd soft ND, (+) vertical and horizontal wounds no edema Augustin Bangura MD Apr 23, 2019 08:58
[2019-04-23] MEDS: Pantoprazole Inj IVP SCH (09:46)
[2019-04-23] MEDS: Ketorolac 30mg Inj IV PRN (09:46)
--- NOTE | 2019-04-23 10:00 | NUR ---
NURSE NOTES: Assessed abdominal surgical site, yon remain CDI, no drainage/redness/swelling. Reinforced CDB with IS and pillow as abdominal splint. IS use good (almost 2000 ml with inspiration) Will continue to monitor.
--- NOTE | 2019-04-23 11:26 | NUR ---
NURSE NOTES: Spoke to Dr. Mitchell regarding platelets 138 today, okay to give Heparin, see eMAR.
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
[2019-04-23] MEDS: Heparin 5000 units/ml inj SUBQ SCH ×2 (11:58→20:45)
--- NOTE | 2019-04-23 14:32 | NUR ---
NURSE NOTES: Spoke to regarding diet and new order received. Order read back and carried out.
--- NOTE | 2019-04-23 17:30 | NUR ---
CASE MANAGEMENT:REVIEW 04/23/19 SI: POD #4 S/P OPEN COLOSTOMY TAKE DOWN.EXTENSIVE LYSIS OF ADHESIONS OPEN OMENTECTOMY. PARTIAL DISTAL COLECTOMY REPAIR OF SMALL BOWEL ENTEROTOMY 97.3 64 19 140/80 97% ON RA PLT-138 IS: CARGO OPERATIONS AGENT DILAUDID IV PROTONIX QD IV FLAGYL Q8HRS IV ANCEF Q8HRS IVF@100/HR : MED/SURG STATUS PLAN: NPO
[2019-04-23] MEDS ORDERED: Tubing IV Secondary IV ONE (17:40)
--- NOTE | 2019-04-23 19:20 | NUR ---
HAND-OFF: Report given to Gho RN, rounds made. Endorsed renewal for PATIENT RELATIONS COORDINATOR (Dilaudid) order received from Dr. Mitchell and need for syringe/tubing change.
--- NOTE | 2019-04-23 19:30 | NUR ---
NURSE NOTES: Receive a report from ALFREDO Howard. Round is done. Pt is awake and alert. No acute distress noted. Pain is tolerated with CASTING TRUCKER pump. Surgery sites are open to the air with yon. No discharge noted. Call light within reach. Will continue to monitor.
[2019-04-23] MEDS ORDERED: PCA Education Pamphlet MISC ONE (19:45)
[2019-04-23] MEDS ORDERED: PCA HYDROmorphone 1mg/ml 30 ML IV PRN (19:45)
[2019-04-23] MEDS ORDERED: Naloxone 0.4mg/ml Inj IVP PRN (19:45)
[2019-04-23] MEDS ORDERED: Rate Change PCA 1 Each MISC PRN (19:45)
[2019-04-23] MEDS ORDERED: Heparin 5000 units/ml inj SUBQ SCH (21:00)
--- NOTE | 2019-04-23 21:30 | NUR ---
NURSE NOTES: Given Heparin 5000U sc with MD's confirmation. No bleeding sings noted. Pt states that he feels chilling sensation. BT: 98.2F. On ATB treatment. Will continue to monitor. made aware.
--- NOTE | 2019-04-23 21:40 | Surgery Progress Note ---
Surgery Progress Note Subjective Procedure Performed 1. laparoscopic converted to open colostomy takedown with primary anastomosis 2. extensive open lysis of adhesions 3. open appendectomy 4. omentectomy 5. partial colectomy 6. repair of small bowel enterotomy 7. mobilization of splenic flexure 8. adjacent tissue transfer with skin and subcutaneous flap for closure of prior colostomy defect primarily 9. modifier 22 very difficult procedure Symptoms: improved, passing flatus Objective Last 24 Hour Vital Signs Date Time Temp Pulse Resp B/P (MAP) Pulse Ox O2 Delivery O2 Flow Rate FiO2 04/23/19 20:00 98.2 65 20 131/77 (95) 97 04/23/19 19:46 98 Room Air 21 04/23/19 16:00 98.1 66 20 144/83 (103) 97 04/23/19 16:00 66 20 97 04/23/19 12:40 97 04/23/19 12:00 64 19 90 04/23/19 12:00 97.3 64 19 140/80 (100) 90 04/23/19 09:24 97 Room Air 21 04/23/19 09:00 Room Air 04/23/19 08:00 98.1 71 19 133/81 (98) 96 04/23/19 08:00 71 19 96 04/23/19 04:05 98.4 67 16 134/87 (103) 98 04/23/19 04:00 67 16 98 04/23/19 00:00 98.5 76 16 129/79 (96) 98 04/23/19 00:00 76 16 98 I&O Intake and Output 04/22/19 04/23/19 19:00 07:00 Intake Total 1000 ml 1100 ml Balance 1000 ml 1100 ml IV Total 1000 ml 1100 ml # Voids 3 2 Dressing: dry Wound: clean Cardiovascular: RSR Respiratory: clear Abdomen: soft, non-tender, present bowel sounds Extremities: no edema, no tenderness, no cyanosis Laboratory Tests Test 04/23/19 05:30 White Blood Count 4.9 K/UL (4.8-10.8) Red Blood Count 3.74 M/UL (4.70-6.10) L Hemoglobin 11.2 G/DL (14.2-18.0) L Hematocrit 32.6 % (42.0-52.0) L Mean Corpuscular Volume 87 FL (80-99) Mean Corpuscular Hemoglobin 30.0 PG (27.0-31.0) Mean Corpuscular Hemoglobin Concent 34.4 G/DL (32.0-36.0) Red Cell Distribution Width 12.1 % (11.6-14.8) Platelet Count 138 K/UL (150-450) L Mean Platelet Volume 6.4 FL (6.5-10.1) L Neutrophils (%) (Auto) 57.0 % (45.0-75.0) Lymphocytes (%) (Auto) 25.8 % (20.0-45.0) Monocytes (%) (Auto) 13.3 % (1.0-10.0) H Eosinophils (%) (Auto) 3.1 % (0.0-3.0) H Basophils (%) (Auto) 0.8 % (0.0-2.0) Sodium Level 139 MMOL/L (136-145) Potassium Level 4.4 MMOL/L (3.5-5.1) Chloride Level 105 MMOL/L (98-107) Carbon Dioxide Level 28 MMOL/L (21-32) Anion Gap 6 mmol/L (5-15) Blood Urea Nitrogen 11 mg/dL (7-18) Creatinine 0.8 MG/DL (0.55-1.30) Estimat Glomerular Filtration Rate > 60 mL/min (>60) Glucose Level 100 MG/DL (74-106) Calcium Level 8.7 MG/DL (8.5-10.1) Total Bilirubin 0.6 MG/DL (0.2-1.0) Aspartate Amino Transf (AST/SGOT) 24 U/L (15-37) Alanine Aminotransferase (ALT/SGPT) 26 U/L (12-78) Alkaline Phosphatase 45 U/L (46-116) L Total Protein 6.5 G/DL (6.4-8.2) Albumin 2.6 G/DL (3.4-5.0) L Globulin 3.9 g/dL Albumin/Globulin Ratio 0.7 (1.0-2.7) L Assessment Post-op Diagnosis hx of colostomy extensive intraabdominal adhesions appendix incarcerated with small bowel into pelvis large abdominal wall defect Plan Problems: (1) History of colostomy (2) Colostomy status Assessment & Plan: Status post colostomy takedown with above very complex surgery requiring extensive intraoperative care Satisfactory conclusion resolved. Patient doing very well postoperatively. Labs reviewed Vitals reviewed Exam as above wounds c/d/i incision open to air Ambulatory continue IV antibiotics AM labs start clears (3) Perforated diverticulum of large intestine Forrest Mitchell Apr 23, 2019 21:40
--- NOTE | 2019-04-23 22:25 | NUR ---
NURSE NOTES: Dilaudid syringe changed. Discard 11ml witnessed by CN. Will continue to monitor.
[2019-04-23] MEDS ORDERED: D5 1/2NS w/KCl 20mEq 1,000 ML IV SCH (22:30)
[2019-04-24] VITALS: BP 127/83
[2019-04-24] MEDS: Ketorolac 30mg Inj IV PRN (00:18)
--- NOTE | 2019-04-24 00:30 | NUR ---
NURSE NOTES: No N/V or chilling or febrile sensation noted. Pain level is 8/10. Provide prn pain medication as ordered. Pt does not want to use RN MEDICAL INPATIENT SERVICES pump at this time d/t nausea sense. Will continue to monitor.
[2019-04-24] MEDS: ceFAZolin sod 2 GM in D5W 110 ML IV SCH ×2 (01:55→10:21)
--- NOTE | 2019-04-24 02:23 | NUR ---
NURSE NOTES: After drinking 50ml juice, noted nausea and vomiting about 250ml. Given prn Zofran 4mg IVS. Keep dry and clean after changing linen and gown. Will continue to monitor.
[2019-04-24 04:00] VITALS: BP 145/82
[2019-04-24] MEDS: DiphenhydrAMINE 50mg/ml Inj IVP PRN ×2 (04:15→22:27)
--- NOTE | 2019-04-24 06:00 | NUR ---
NURSE NOTES: No N/V noted. Itching relieved after Benadryl 1.25mg IVP. No acute distress noted. Will continue to follow up with ATB, Ancef IVS for nausea/vomiting.
[2019-04-24] MEDS ORDERED: PCA shift volume MISC SCH (07:00)
--- NOTE | 2019-04-24 07:18 | NUR ---
NURSE NOTES: Report received from o RN, rounds made. Patient sleeping in right lateral position. No distress on RA. IVF (D5 1/2 +20KCL) at 75 ml/hr to left wrist, site asymptomatic. Call light in reach, bed in lowest position, will continue to monitor.
--- NOTE | 2019-04-24 07:30 | NUR ---
HAND-OFF: Report given to ALFREDO Howard. Done round.
[2019-04-24 08:00] VITALS: BP 136/87
[2019-04-24] MEDS: Pantoprazole Inj IVP SCH (08:35)
[2019-04-24] MEDS: Heparin 5000 units/ml inj SUBQ SCH ×2 (08:37→20:11)
[2019-04-24 12:00] VITALS: BP 134/83
[2019-04-24 16:00] VITALS: BP 135/85
[2019-04-24] MEDS: Morphine Sulfate 2mg/ml Inj(IV/IM USE ONLY) IVP PRN ×2 (16:10→20:10)
--- NOTE | 2019-04-24 17:18 | General Progress Note ---
Assessment/Plan Assessment/Plan: Assessment - h/o diverticulosis/diverticulitis --> colostomy - s/p open colostomy takedown - s/p open appy - s/p omentectomy, TANG, partial colectomy, enterotomy repain - low Mg - replaced Assessment - IV flagyl / Ancef per surgery - IVF - follow labs and exam - PPI - replace lytes - diet per surgery - OOB / DVT prophylaxis Subjective Allergies: Coded Allergies: No Known Allergies (Unverified , 05/18/13) Subjective Feels OK decreasing abd pain (+) flatus on clears Objective Last 24 Hour Vital Signs Date Time Temp Pulse Resp B/P (MAP) Pulse Ox O2 Delivery O2 Flow Rate FiO2 04/24/19 04:00 98.0 58 18 145/82 (103) 97 04/24/19 04:00 58 18 97 04/24/19 00:00 63 18 98 04/24/19 00:00 98.3 63 20 127/83 (98) 98 04/23/19 22:22 18 04/23/19 22:21 20 04/23/19 21:00 Room Air 04/23/19 20:00 98.2 65 20 131/77 (95) 97 04/23/19 20:00 65 20 97 04/23/19 19:46 98 Room Air 21 Intake and Output 04/23/19 04/24/19 19:00 07:00 Intake Total 1540 ml 1425 ml Output Total 20 ml 250 ml Balance 1520 ml 1175 ml Intake Oral 640 ml 350 ml IV Total 900 ml 1075 ml Emesis 20 ml 250 ml # Voids 2 4 Height (Feet): 5 Height (Inches): 11.00 Weight (Pounds): 199 Objective WDWN AA man NCAT supple CTA RR abd soft ND, (+) vertical and horizontal wounds no edema Augustin Bangura MD Apr 24, 2019 17:18
--- NOTE | 2019-04-24 18:15 | NUR ---
NURSE NOTES: Patient ambulating in halls x4 this shift. Activity tolerance good. No complains of dizziness, gait steady. Abdominal surgical site/yon remains CDI. IVF/ABX/TRAINING AND DEVELOPMENT MANAGER discontinued as ordered at 1400. Full liquids diet started at 1200, tolerated fair.
--- NOTE | 2019-04-24 19:20 | NUR ---
HAND-OFF: Report given to Gho RN. Endorsed updated plan of care.
--- NOTE | 2019-04-24 19:25 | NUR ---
NURSE NOTES: Receive a report from ALFREDO Howard. Round is done. pt is awake and alert. Abdominal pain got increased while ambulating but got relieving after rest. But waiting for next dose of pain medication. No N/V noted. Op site is clear without discharge. Call light within reach. Will continue to monitor.
[2019-04-24 20:00] VITALS: BP 141/89
--- NOTE | 2019-04-24 21:00 | NUR ---
NURSE NOTES: No BM yet despite passing gas. Encourage oral hydration and ambulation. verbalizing understanding. Pain decreased after pain medication as 09/11. Will continue to monitor.
--- NOTE | 2019-04-24 21:49 | Surgery Progress Note ---
Surgery Progress Note Subjective Procedure Performed 1. laparoscopic converted to open colostomy takedown with primary anastomosis 2. extensive open lysis of adhesions 3. open appendectomy 4. omentectomy 5. partial colectomy 6. repair of small bowel enterotomy 7. mobilization of splenic flexure 8. adjacent tissue transfer with skin and subcutaneous flap for closure of prior colostomy defect primarily 9. modifier 22 very difficult procedure Symptoms: improved, tolerating diet, voiding well, passing flatus Objective Last 24 Hour Vital Signs Date Time Temp Pulse Resp B/P (MAP) Pulse Ox O2 Delivery O2 Flow Rate FiO2 04/24/19 20:30 98 Room Air 21 04/24/19 16:00 98.9 64 18 135/85 (102) 98 04/24/19 12:00 60 18 96 04/24/19 12:00 99.0 60 18 134/83 (100) 96 04/24/19 09:00 Room Air 04/24/19 08:00 66 18 98 04/24/19 08:00 98.2 66 18 136/87 (103) 98 04/24/19 04:00 98.0 58 18 145/82 (103) 97 04/24/19 04:00 58 18 97 04/24/19 00:00 63 18 98 04/24/19 00:00 98.3 63 20 127/83 (98) 98 04/23/19 22:22 18 04/23/19 22:21 20 I&O Intake and Output 04/23/19 04/24/19 19:00 07:00 Intake Total 1540 ml 1425 ml Output Total 20 ml 250 ml Balance 1520 ml 1175 ml Intake Oral 640 ml 350 ml IV Total 900 ml 1075 ml Emesis 20 ml 250 ml # Voids 2 4 Dressing: dry Wound: clean Cardiovascular: RSR Respiratory: clear Abdomen: soft, non-tender, present bowel sounds Extremities: no edema Assessment Post-op Diagnosis hx of colostomy extensive intraabdominal adhesions appendix incarcerated with small bowel into pelvis large abdominal wall defect Plan Problems: (1) History of colostomy (2) Colostomy status Assessment & Plan: Status post colostomy takedown with above very complex surgery requiring extensive intraoperative care Satisfactory conclusion resolved. Patient doing very well postoperatively. Labs reviewed Vitals reviewed Exam as above wounds c/d/i incision open to air Ambulatory continue IV antibiotics AM labs start clears (3) Perforated diverticulum of large intestine Forrest Mitchell Apr 24, 2019 21:49
[2019-04-25] VITALS: BP 128/73
[2019-04-25] MEDS: Morphine Sulfate 2mg/ml Inj(IV/IM USE ONLY) IVP PRN (03:24)
[2019-04-25 04:00] VITALS: BP 134/70
--- NOTE | 2019-04-25 04:10 | NUR ---
NURSE NOTES: No BM yet despite passing gas. Pain is 7/10 after prn Morphine IVS. Noted nausea without vomiting. Given Zofran IVS as prn. Will continue to monitor.
--- NOTE | 2019-04-25 07:30 | NUR ---
HAND-OFF: Report given to ALFREDO Howard. Round is done. Nause sense got better. Finished a bowel of soup as breakfast. Will continue to monitor.
--- NOTE | 2019-04-25 07:34 | NUR ---
NURSE NOTES: Report received from Lindao RN, rounds made. Patient sitting in high fowlers position in bed. No distress on RA, no NV. Tolerating full liquid diet, fair,encouraged hydration. Up ambulating in halls prior to rounds. LFA heplock in place, site asymptomatic. Abdominal pain 5/10. Abdominal surgical site, yon, GEOSPATIAL APPLICATIONS DEVELOPER, no drainage/redness/swelling. Flatulence +. Encourarged IS. Call light in reach, bed in lowest position, will continue to monitor.
[2019-04-25 08:00] VITALS: BP 128/91
[2019-04-25] MEDS: Heparin 5000 units/ml inj SUBQ SCH ×2 (09:58→20:44)
--- NOTE | 2019-04-25 11:42 | Surgery Progress Note ---
Surgery Progress Note Subjective Procedure Performed 1. laparoscopic converted to open colostomy takedown with primary anastomosis 2. extensive open lysis of adhesions 3. open appendectomy 4. omentectomy 5. partial colectomy 6. repair of small bowel enterotomy 7. mobilization of splenic flexure 8. adjacent tissue transfer with skin and subcutaneous flap for closure of prior colostomy defect primarily 9. modifier 22 very difficult procedure Symptoms: improved, tolerating diet, voiding well, passing flatus Objective Last 24 Hour Vital Signs Date Time Temp Pulse Resp B/P (MAP) Pulse Ox O2 Delivery O2 Flow Rate FiO2 04/25/19 08:26 98 Room Air 21 04/25/19 08:00 98.8 73 16 128/91 (103) 96 04/25/19 04:00 98.6 74 20 134/70 (91) 96 04/25/19 00:00 99.1 67 20 128/73 (91) 98 04/24/19 21:00 Room Air 04/24/19 20:30 98 Room Air 21 04/24/19 20:00 98.4 74 20 141/89 (106) 98 04/24/19 16:00 98.9 64 18 135/85 (102) 98 04/24/19 12:00 60 18 96 04/24/19 12:00 99.0 60 18 134/83 (100) 96 I&O Intake and Output 04/24/19 04/25/19 19:00 07:00 Intake Total 780 ml Output Total 500 ml Balance 780 ml -500 ml Intake Oral 480 ml IV Total 300 ml Output Urine Total 500 ml # Voids 3 Dressing: dry Wound: clean Cardiovascular: RSR Respiratory: clear Abdomen: soft, flat, non-tender, present bowel sounds Extremities: no edema, no tenderness, no cyanosis Assessment Post-op Diagnosis hx of colostomy extensive intraabdominal adhesions appendix incarcerated with small bowel into pelvis large abdominal wall defect Plan Problems: (1) History of colostomy (2) Colostomy status Assessment & Plan: Status post colostomy takedown with above very complex surgery requiring extensive intraoperative care Satisfactory conclusion resolved. Patient doing very well postoperatively. Labs reviewed Vitals reviewed Exam as above wounds c/d/i incision open to air Ambulatory regular diet d/c planning (3) Perforated diverticulum of large intestine Forrest Mitchell Apr 25, 2019 11:42
[2019-04-25 12:00] VITALS: BP 131/80
[2019-04-25 16:00] VITALS: BP 136/84
--- NOTE | 2019-04-25 17:30 | NUR ---
NURSE NOTES: Patient started regular diet for lunch, tolerated well, ate 75%, no NV, encouraged PO fluid intake. Flatulence present. No BM yet. Will continue to monitor.
[2019-04-25] MEDS: Docusate 100mg cap ORAL SCH (17:56)
--- NOTE | 2019-04-25 18:11 | General Progress Note ---
Assessment/Plan Assessment/Plan: Assessment - h/o diverticulosis/diverticulitis --> colostomy - s/p open colostomy takedown - s/p open appy - s/p omentectomy, TANG, partial colectomy, enterotomy repain Assessment - follow exam - PPI - diet per surgery - OOB / DVT prophylaxis Subjective Allergies: Coded Allergies: No Known Allergies (Unverified , 05/18/13) Subjective Feels OK decreasing abd pain (+) flatus on clears Objective Last 24 Hour Vital Signs Date Time Temp Pulse Resp B/P (MAP) Pulse Ox O2 Delivery O2 Flow Rate FiO2 04/25/19 12:00 98.6 73 18 131/80 (97) 97 04/25/19 09:00 Room Air 04/25/19 08:26 98 Room Air 21 04/25/19 08:00 98.8 73 16 128/91 (103) 96 04/25/19 04:00 98.6 74 20 134/70 (91) 96 04/25/19 00:00 99.1 67 20 128/73 (91) 98 04/24/19 21:00 Room Air 04/24/19 20:30 98 Room Air 21 04/24/19 20:00 98.4 74 20 141/89 (106) 98 Intake and Output 04/24/19 04/25/19 19:00 07:00 Intake Total 780 ml Output Total 500 ml Balance 780 ml -500 ml Intake Oral 480 ml IV Total 300 ml Output Urine Total 500 ml # Voids 3 Height (Feet): 5 Height (Inches): 11.00 Weight (Pounds): 199 Objective WDWN AA man NCAT supple CTA RR abd soft ND, (+) vertical and horizontal wounds no edema Augustin Bangura MD Apr 25, 2019 18:11
--- NOTE | 2019-04-25 19:25 | NUR ---
HAND-OFF: Report given to Madelaine FUENTES, rounds made, patient sitting in chair/stable.
[2019-04-25 20:00] VITALS: BP 115/79
--- NOTE | 2019-04-25 23:06 | NUR ---
NURSE NOTE: Pt is A/Ox4 with stable VS. Orders reviewed and physical assessment completed. Pt ambulated x2 in the hallway. Pt denies pain at this time. Pt requested a sleep aid. Dr. Mitchell was paged (see eMAR). The call light is within reach, will continue to monitor.
[2019-04-26 00:23] VITALS: BP 127/71
[2019-04-26 04:00] VITALS: BP 142/83
--- NOTE | 2019-04-26 07:53 | NUR ---
NURSE NOTES: AWAKE/ALERT. PAIN SCALE 3/10. ABDOMINAL INCISION AND JOSSIE DRY AND INTACT. WITH BOWEL SOUNDS. STATES PASSING GAS BUT NO BM. IN NO DISTRESS.
[2019-04-26 08:00] VITALS: BP 133/78
[2019-04-26] MEDS: Docusate 100mg cap ORAL SCH (08:32)
[2019-04-26] MEDS: Heparin 5000 units/ml inj SUBQ SCH (08:35)
--- NOTE | 2019-04-26 11:25 | NUR ---
CASE MANAGEMENT:REVIEW 04/26/19 SI: POD #7 S/P OPEN COLOSTOMY TAKE DOWN.EXTENSIVE LYSIS OF ADHESIONS OPEN OMENTECTOMY. PARTIAL DISTAL COLECTOMY REPAIR OF SMALL BOWEL ENTEROTOMY 98.1 71 18 133/78 99% ON RA IS: COLACE PO BID IV MORPHINE Q4HRS : MED/SURG STATUS PLAN: REGULAR DIET POSSIBLE DISCHARGE HOME...WAITING FOR SURGEON
[2019-04-26 12:00] VITALS: BP 141/90
[2019-04-26] MEDS ORDERED: NORCO 5-325 TA1 EACH ORAL (13:47)
[2019-04-26] MEDS ORDERED: IBUPROFEN200 MG ORAL (13:48)
[2019-04-26] MEDS ORDERED: COLACE100 MG ORAL (13:49)
--- NOTE | 2019-04-26 14:30 | NUR ---
NURSE NOTES: DISCHARGED HOME ACCPD BY IN STABLE CONDITION. DC INSTRUCTIONS AND HOME PRESCRIPTION MEDS GIVEN.
--- NOTE | 2019-04-26 21:09 | General Progress Note ---
Assessment/Plan Assessment/Plan: Assessment - h/o diverticulosis/diverticulitis --> colostomy - s/p open colostomy takedown - s/p open appy - s/p omentectomy, TANG, partial colectomy, enterotomy repain Assessment - follow exam - PPI - diet per surgery - OOB / DVT prophylaxis Subjective Allergies: Coded Allergies: No Known Allergies (Unverified , 05/18/13) Subjective Feels OK decreasing abd pain (+) flatus on regular diet Objective Last 24 Hour Vital Signs Date Time Temp Pulse Resp B/P (MAP) Pulse Ox O2 Delivery O2 Flow Rate FiO2 04/26/19 13:53 98.0 04/26/19 12:00 98.0 69 20 141/90 (107) 99 04/26/19 10:08 98.1 04/26/19 09:08 Room Air 04/26/19 08:00 98.1 71 18 133/78 (96) 99 04/26/19 04:00 98.7 58 18 142/83 (102) 99 04/26/19 00:23 98.4 74 18 127/71 (89) 99 Intake and Output 04/25/19 04/26/19 19:00 07:00 Intake Total 1500 ml Balance 1500 ml Intake Oral 1500 ml # Voids 2 1 Height (Feet): 5 Height (Inches): 11.00 Weight (Pounds): 199 Objective WDWN AA man NCAT supple CTA RR abd soft ND, (+) vertical and horizontal wounds no edema Augustin Bangura MD Apr 26, 2019 21:09
--- NOTE | 2019-04-27 11:03 | Discharge Summary ---
Discharge Summary Discharge Summary _ DATE OF ADMISSION: 04/19/2019 DATE OF DISCHARGE: 04/26/2019 DISCHARGED BY: Dr. Mitchell REASON FOR ADMISSION: 38 years old male with history of Liz procedure in November 2018 for perforated diverticulitis, presented for colostomy takedown. Patient was seen in the surgeon office after being referred by primary care provider. Patient was ready for takedown of colostomy. No nausea or vomiting. No fever or chills. Prior midline wound incision completely healed. No other current issues. Laboratory work-up was stable. Patient subsequently admitted for takedown of colostomy. to medical surgical floor. CONSULTANTS: GI specialist Dr. Bangura cloth bleaching range tender/oncologist Dr. Cates [facility] COURSE: Patient undergone laparoscopic , converted to open colostomy takedown with primary anastomosis, extensive open lysis of adhesions, open appendectomy, open omentectomy, partial distal colectomy, repair of small bowel enterotomy, mobilization of splenic flexure. During procedure extensive intra-abdominal adhesions were found. Appendix and small bowel were incarcerated within the pelvis. Postoperatively patient was on the IV fluids and empiric antibiotics. DVT and GI prophylaxis provided. Patient was mobilized as tolerated. Renal parameters and electrolytes were closely monitored. Magnesium was replaced. Pain management was addressed as needed, and pain w as controlled. Patient slowly started on diet as tolerated. Antiemetic were on board as needed. Wound care provided as per surgeon recommendation. Patient was able to tolerate regular diet. Pain was controlled. Patient was having bowel movement. Patient clinically stabilized and was ready for discharge home. FINAL DIAGNOSES: History of colostomy with Liz procedure for acute perforated diverticulitis in November 2018 Extensive intra-abdominal adhesions Appendix and small bowels incarcerated within the pelvis Large abdominal wall defect Hypomagnesemia Status post laparoscopic ,converted to open colostomy takedown with primary anastomosis, extensive open lysis of adhesion, open appendectomy, open omentectomy, partial distal colectomy, repair of small bowel enterotomy, mobilization of splenic flexure DISCHARGE MEDICATIONS: See Medication Reconciliation list. DISCHARGE INSTRUCTIONS: Patient was discharged home. Follow-up with surgeon as outpatient as advised I have been assigned to dictate discharge summary for this account. I was not involved in the patient's management. Gina Webster NP Apr 27, 2019 11:03
--- NOTE | 2019-04-29 13:56 | Cardiology Report ---
APPROVED REPORT EKG Measurement Heart [id number] <Conclusion> Sinus bradycardia Otherwise normal ECG
== END 2019-04-26 14:30 | disposition home or self-care (01) | DRG 330 ==
LOC: SDSOVERFLO 06:15 → 3E 15:53
PROC: 0DBU0ZZ Excision of Omentum, Open Approach (ICD-10-PCS; principal; 2019-04-19 07:30)
PROC: 0DNU0ZZ Release Omentum, Open Approach (ICD-10-PCS; principal; 2019-04-19 07:30)
PROC: 0JX80ZB Transfer Abdomen Subcutaneous Tissue and Fascia with Skin and Subcutaneous Tissue, Open Approach (ICD-10-PCS; principal; 2019-04-19 07:30)
PROC: 0DN80ZZ Release Small Intestine, Open Approach (ICD-10-PCS; principal; 2019-04-19 07:30)
PROC: 0DTN0ZZ Resection of Sigmoid Colon, Open Approach (ICD-10-PCS; principal; 2019-04-19 07:30)
PROC: 0DTJ0ZZ Resection of Appendix, Open Approach (ICD-10-PCS; principal; 2019-04-19 07:30)
PROC: 0DBB0ZZ Excision of Ileum, Open Approach (ICD-10-PCS; principal; 2019-04-19 07:30)
PROC: 0DQ80ZZ Repair Small Intestine, Open Approach (ICD-10-PCS; principal; 2019-04-19 07:30)
PROC: 0WJG4ZZ Inspection of Peritoneal Cavity, Percutaneous Endoscopic Approach (ICD-10-PCS; principal; 2019-04-19 07:30)
DX: Z43.3 Encounter for attention to colostomy (principal); K91.71 Accidental puncture and laceration of a digestive system organ or structure during a digestive system procedure; K56.51 Intestinal adhesions [bands], with partial obstruction; D69.59 Other secondary thrombocytopenia; D64.9 Anemia, unspecified; E80.6 Other disorders of bilirubin metabolism; Z53.31 Laparoscopic surgical procedure converted to open procedure; E83.42 Hypomagnesemia; K66.0 Peritoneal adhesions (postprocedural) (postinfection); K38.8 Other specified diseases of appendix
CPT/HCPCS: 36415; 80048; 80053; 83735; 84100; 85025; 85610; 85730; 86850; 86900; 86901; 87081; 93005; 94003; 94150; A4246; J2250; J2405